=== PATIENT | male | born 2000 | race Caucasian/White ===

== ENCOUNTER 2022-02-28 20:13 | Emergency (ER) | payer BC ==
[2022-03-01 00:32] LABS: Absolute Lymphocytes (CBC) 2.6 K/uL (0.7-4.9); Hematocrit 38.8 % (39.6-49.0); Lymphocytes % 23.4 % (15.3-44.8); MCV 78.8 fL (80-100); MPV 7.2 fL (7.6-11.3); RBC Red Blood Cell Count 4.93 M/uL (4.33-5.43)
[2022-03-01 00:33] LABS: Protime INR 1.22
[2022-03-01 00:46] LABS: Albumin 3.7 g/dL (3.4-5.0); Bilirubin Direct 0.1 mg/dL (0-0.2); Bilirubin Total 0.5 mg/dL (0.2-1.0); Magnesium 2.1 mg/dL (1.8-2.4); Potassium 4.2 mmol/L (3.5-5.1); Protein, Total 7.6 g/dL (6.4-8.2); Troponin High Sensitivity 4.6 pg/mL (<58.9)
--- NOTE | 2022-03-01 01:16 | EDPHYS ---
Physician Documentation [facility] Name: Jeffrey Sevilla Age: 21 yrs Sex: Male : 2000 Arrival Date: 02/28/2022 Time: 20:18 Bed 8 Private MD: ED Physician Jack Jones HPI: 02/28 22:35 This 21 yrs old Male presents to ER via Ambulatory with complaints of Leg Probelm. cp 22:35 The patient presents with swelling, of lower legs and feet. cp 22:35 The complaints affect the left lower leg and left foot and right lower leg and right cp foot. Context: resulted from an unknown cause, the patient can fully bear weight, the patient is able to ambulate, without difficulty, Problem is a result from a previous injury: No. Onset: The symptoms/episode began/occurred 3 day(s) ago. Associated signs and symptoms: The patient has no apparent associated signs or symptoms, Pertinent negatives calf tenderness, fever, numbness, warmth, weakness, chest pain, shortness of breath. Treatment prior to arrival includes: no previous treatment. Historical: - Allergies: 20:45 NKDA; bh1 - Home Meds: 20:45 None [Active]; bh1 - PMHx: 20:45 None; bh1 - PSHx: 20:45 None; bh1 - Immunization history:: Adult Immunizations up to date. - Social history:: Smoking status: Reported history of juuling and/or vaping. ROS: 22:40 Constitutional: Negative for body aches, chills, fever, poor PO intake. cp 22:40 Eyes: Negative for injury, pain, redness, and discharge. cp 22:40 Neck: Negative for pain with movement, pain at rest, stiffness. 22:40 Cardiovascular: Positive for edema, Negative for chest pain, palpitations. 22:40 Respiratory: Negative for cough, shortness of breath, wheezing. 22:40 Abdomen/GI: Negative for abdominal pain, nausea, vomiting, and diarrhea, constipation, black/tarry stool, rectal bleeding. 22:40 Back: Negative for pain at rest, pain with movement. 22:40 Skin: Negative for cellulitis, rash. 22:40 Neuro: Negative for altered mental status, dizziness, headache, numbness, syncope, weakness. 22:40 All other systems are negative. Exam: 22:45 Constitutional: The patient appears in no acute distress, alert, awake, cp non-diaphoretic, non-toxic, well developed, well nourished, obese. 22:45 Head/Face: Normocephalic, atraumatic. cp 22:45 Eyes: Periorbital structures: appear normal, Conjunctiva: normal, no exudate, no injection, Sclera: no appreciated abnormality, Lids and lashes: appear normal, bilaterally. 22:45 ENT: External ear(s): are unremarkable, Nose: is normal, Mouth: Lips: moist, Oral mucosa: pink and intact, moist, Posterior pharynx: Airway: no evidence of obstruction, patent. 22:45 Neck: ROM/movement: is normal, is supple, without pain, no range of motions limitations. 22:45 Chest/axilla: Inspection: normal, Palpation: is normal, no crepitus, no tenderness. 22:45 Cardiovascular: Rate: normal, Rhythm: regular, Edema: pedal edema, that is very mild, ankle edema, that is very mild, JVD: is not appreciated. 22:45 Respiratory: the patient does not display signs of respiratory distress, Respirations: normal, no use of accessory muscles, no retractions, labored breathing, is not present, Breath sounds: are clear throughout, no decreased breath sounds, no stridor, no wheezing. 22:45 Abdomen/GI: Exam negative for discomfort, distension, guarding, Inspection: obese 22:45 Back: pain, is absent, ROM is normal. 22:45 Neuro: Orientation: to person, place \T\ time. Mentation: is normal, Motor: moves all fours, strength is normal, Sensation: is normal, Gait: is steady, at a normal pace, without difficulty. 23:55 ECG was reviewed by the Attending Physician. cp Vital Signs: 20:43 BP 101 / 54; Pulse 81; Resp 20; Temp 98.2(TE); Pulse Ox 100% ; Weight 181.44 kg; Height bh1 5 ft. 11 in. (180.34 cm); Pain 0/10; 03/01 00:17 BP 162 / 91; Pulse 86; Resp 18; Pulse Ox 100% ; kd3 02/28 20:43 Body Mass Index 55.79 (181.44 kg, 180.34 cm) bh1 MDM: 02/28 22:53 Patient medically screened. cp 23:00 Differential diagnosis: dependent edema, DVT, cellulitis, lymphedema, kidney failure, cp CHF, obesity. 03/01 01:15 Data reviewed: vital signs, nurses notes, lab test result(s), EKG, radiologic studies, cp plain films, ultrasound. 01:15 Test interpretation: by ED physician or midlevel provider: plain radiologic studies. cp Counseling: I had a detailed discussion with the patient and/or guardian regarding: the historical points, exam findings, and any diagnostic results supporting the discharge/admit diagnosis, lab results, radiology results, the need for outpatient follow up, a family practitioner, to return to the emergency department if symptoms worsen or persist or if there are any questions or concerns that arise at home. ED course: VSS. Labs, EKG and chest xray reviewed. Will discharge to home for continued monitoring. Recommend elevate, compression stockings. 02/28 22:34 Order name: Basic Metabolic Panel; Complete Time: 00:48 02/28 22:34 Order name: CBC with Diff; Complete Time: 00:41 02/28 22:34 Order name: LFT's; Complete Time: 00:48 cp 03/01 00:48 Interpretation: Normal except: AST 13; GLOB 3.9; A/G 0.9. 02/28 22:34 Order name: Magnesium; Complete Time: 00:48 cp 02/28 22:34 Order name: NT PRO-BNP; Complete Time: 00:48 cp 02/28 22:34 Order name: PT-INR; Complete Time: 00:41 03/01 00:41 Interpretation: Reviewed. 02/28 22:34 Order name: Troponin HS; Complete Time: 00:48 02/28 22:34 Order name: XRAY Chest (1 view) 02/28 22:34 Order name: EKG; Complete Time: 22:35 02/28 22: Order name: Cardiac monitoring; Complete Time: 00:16 cp 02/28 22:34 Order name: EKG - Nurse/Tech; Complete Time: 00:13 02/28 22:34 Order name: IV Saline Lock; Complete Time: 00:16 cp 02/28 22:34 Order name: Labs collected and sent; Complete Time: 00:16 02/28 22:34 Order name: US Extremity Venous W Compression Abdon cp 02/28 22:34 Order name: O2 Per Protocol; Complete Time: 00:16 cp 02/28 22:34 Order name: O2 Sat Monitoring; Complete Time: 00:16 cp EC/25 23:55 Rate is 87 beats/min. Rhythm is regular. AR interval is normal. QRS interval is normal. cp QT interval is normal. T waves are Inverted in lead aVR. Interpreted by me. Reviewed by me. Administered Medications: No medications were administered Disposition: 03/01 02:49 Co-signature as Attending Physician, Jack Jones MD I agree with the assessment and kdr plan of care. Disposition Summary: 03/01/22 01:15 Discharge Ordered Location: Home cp Problem: new cp Symptoms: are unchanged cp Condition: Stable cp Diagnosis - Edema, unspecified cp Followup: cp - With: Private Physician - When: 2 - 3 days - Reason: Recheck today's complaints Discharge Instructions: - Discharge Summary Sheet cp - Peripheral Edema cp - How to Use Compression Stockings cp - How to Take Your Blood Pressure cp Forms: - Medication Reconciliation Form cp - Thank You Letter cp - Antibiotic Education cp - Prescription Opioid Use cp Signatures: Dispatcher [employer] Jack Moreno MD MD kdr Marvin Hearn PA PA cp Hicks, Barbara, RN RN [facility]
--- NOTE | 2022-03-01 01:16 | ER ---
Nurse's Notes [facility] Name: Jeffrey Sevilla Age: 21 yrs Sex: Male : 2000 Arrival Date: 02/28/2022 Time: 20:18 Bed 8 Private MD: Diagnosis: Edema, unspecified Presentation: 02/28 20:43 Chief complaint: Patient states: FEET AND LEG SWELLING FOR 3 DAYS. Coronavirus screen: [facility] Vaccine status: Patient reports being unvaccinated. At this time, the client does not indicate any symptoms associated with coronavirus-19. Ebola Screen: Patient negative for fever greater than or equal to 101.5 degrees Fahrenheit, and additional compatible Ebola Virus Disease symptoms. Initial Sepsis Screen: Does the patient meet any 2 criteria? No. Patient's initial sepsis screen is negative. Does the patient have a suspected source of infection? No. Patient's initial sepsis screen is negative. Risk Assessment: Do you want to hurt yourself or someone else? Patient reports no desire to harm self or others. Onset of symptoms was February 28, 2022. 20:43 Method Of Arrival: Ambulatory [facility] 20:43 Acuity: NNEKA 4 [facility] Triage Assessment: 20:45 General: Appears in no apparent distress. Behavior is calm, cooperative, appropriate [facility] for age. Pain: Denies pain. Historical: - Allergies: 20:45 NKDA; [facility] - Home Meds: 20:45 None [Active]; 1 - PMHx: 20:45 None; [facility] - PSHx: 20:45 None; [facility] - Immunization history:: Adult Immunizations up to date. - Social history:: Smoking status: Reported history of juuling and/or vaping. Screenin/26 00:18 Abuse screen: Denies threats or abuse. Denies injuries from another. Nutritional kd3 screening: No deficits noted. Tuberculosis screening: No symptoms or risk factors identified. Fall Risk IV access (20 points). Assessment: 00:17 General: Appears in no apparent distress. Behavior is calm, cooperative. Neuro: Level kd3 of Consciousness is awake, alert, obeys commands, Oriented to person, place, time, situation. Cardiovascular: Patient's skin is warm and dry. Respiratory: Airway is patent Trachea midline Respiratory effort is even, unlabored. Vital Signs: 02/28 20:43 BP 101 / 54; Pulse 81; Resp 20; Temp 98.2(TE); Pulse Ox 100% ; Weight 181.44 kg; Height 1 5 ft. 11 in. (180.34 cm); Pain 0/10; 03/01 00:17 BP 162 / 91; Pulse 86; Resp 18; Pulse Ox 100% ; kd3 02/28 20:43 Body Mass Index 55.79 (181.44 kg, 180.34 cm) [facility] ED Course: 02/28 20:18 Patient arrived in ED. ja2 20:45 Triage completed. bh1 20:45 Arm band placed on right wrist. bh1 20:55 Marvin Hearn PA is PHCP. cp 20:55 Jack Jones MD is Attending Physician. cp 22:50 XRAY Chest (1 view) In Process Unspecified. EDMS 23:43 Ilya Pop RN is Primary Nurse. as6 23:48 US Extremity Venous W Compression Abdon In Process Unspecified. EDID 03/01 00:00 Inserted saline lock: 20 gauge in right antecubital area, using aseptic technique. as6 Blood collected. 00:16 PT-INR Sent. kd3 00:16 Troponin HS Sent. kd3 00:17 NT PRO-BNP Sent. kd3 00:17 Magnesium Sent. kd3 00:17 LFT's Sent. kd3 00:17 CBC with Diff Sent. kd3 00:17 Basic Metabolic Panel Sent. kd3 00:18 Patient has correct armband on for positive identification. kd3 01:28 No provider procedures requiring assistance completed. IV discontinued, intact, aa9 bleeding controlled, No redness/swelling at site. Pressure dressing applied. Administered Medications: No medications were administered Medication: 00:18 VIS not applicable for this client. kd3 Outcome: 01:15 Discharge ordered by MD. cp 01:28 Discharged to home ambulatory. aa9 01:28 Condition: stable 01:28 Discharge instructions given to patient, significant other, Instructed on discharge instructions, follow up and referral plans. Demonstrated understanding of instructions, follow-up care. 01:29 Patient left the ED. aa9 Signatures: Dispatcher [employer] EDID Marvin Hearn PA PA cp Soha Santiago ja2 Ilya Pop RN RN as6 Katy Alexandre RN RN kd3 Chelle Enamorado, RN RN aa9 Kerry Small, RN RN bh1
[2022-03-01 02:07] VITALS: TEMP 98.2; O2SAT 100
[2022-03-01 02:09] VITALS: BP 162/91
--- NOTE | 2022-03-01 11:11 | RAD REPORT ---
EXAM DESCRIPTION: XR Chest, 1 View CLINICAL HISTORY: The patient is 21 years old and is Male; edema TECHNIQUE: Frontal view of the chest. COMPARISON: No relevant prior studies available. FINDINGS: Lungs: Mildly prominent interstitial markings. No consolidation. Pleural space: Unremarkable. No pneumothorax. Heart: Unremarkable. Mediastinum: Unremarkable. Bones/joints: Unremarkable. IMPRESSION: Mildly prominent interstitial markings. No consolidation. Electronically signed by: Sagar Aquino MD 03/01/2022 4:32 AM CDT Due to temporary technical issues with the PACS/Fluency reporting system, reports are being signed by the in house radiologists without review as a courtesy to insure prompt reporting. The interpreting radiologist is fully responsible for the content of the report.
--- NOTE | 2022-03-01 11:32 | RAD REPORT ---
EXAM DESCRIPTION: US Duplex Bilateral Lower Extremities Veins CLINICAL HISTORY: The patient is 21 years old and is Male; SWELLING TECHNIQUE: Real-time duplex ultrasound scan of the bilateral lower extremity veins integrating B-mod e two-dimensional vascular structure, Doppler spectral analysis, color flow Doppler imaging and compr ession. COMPARISON: No relevant prior studies available. FINDINGS: Right deep veins: Unremarkable. No DVT in the visualized common femoral, femoral, or p opliteal veins. The veins demonstrate normal color flow, are normally compressible where visualized , with normal phasic flow and/or augmentation response. Left deep veins: Unremarkable. No DVT in the visualized common femoral, femoral, or popliteal v eins. The veins demonstrate normal color flow, are normally compressible where visualized, with nor mal phasic flow and/or augmentation response. Soft tissues: No acute findings. IMPRESSION: No evidence of DVT in the bilateral lower extremity veins. Electronically signed by: Sagar Aquino MD 03/01/2022 12:22 AM CDT Due to temporary technical issues with the PACS/Fluency reporting system, reports are being signed by the in house radiologists without review as a courtesy to insure prompt reporting. The interpreting radiologist is fully responsible for the content of the report.
--- NOTE | 2022-03-01 12:36 | EKG ---
Test Date: 2022-02-28 Test Time: 23:47:04 Survey Research Manager: SOFYA MEASUREMENT RESULTS: Intervals: Rate: 87 UT: 148 QRSD: 86 QT: 358 QTc: 430 [place]: P: 34 UT: 148 QRS: 48 T: 17 INTERPRETIVE STATEMENTS: Normal sinus rhythm Normal ECG No previous ECG available for comparison Electronically Signed On 03-01-22 12:35:59 CDT by Mingo Ojeda
== END 2022-03-01 01:29 | disposition home or self-care (01) ==
LOC: ER 20:13
DX: R60.9 Edema, unspecified (principal)
CPT/HCPCS: 36415; 71045; 80048; 80076; 83735; 83880; 84484; 85025; 85610; 93005; 93970; 99283

== ENCOUNTER 2023-01-18 06:15 | Emergency (ER) | payer BC, SELFPAY ==
[2023-01-18 07:36] LABS: Absolute Lymphocytes (CBC) 2.1 K/uL (0.7-4.9); Hematocrit 37.8 % (39.6-49.0); Lymphocytes % 25.7 % (15.3-44.8); MCV 78.9 fL (80-100); MPV 7.1 fL (7.6-11.3); RBC Red Blood Cell Count 4.79 M/uL (4.33-5.43)
[2023-01-18 07:49] LABS: Albumin 3.5 g/dL (3.4-5.0); Bilirubin Total 0.5 mg/dL (0.2-1.0); Protein, Total 7.4 g/dL (6.4-8.2); Troponin High Sensitivity 5.8 pg/mL (<58.9)
--- NOTE | 2023-01-18 07:53 | RAD REPORT ---
[facility] DES[facility] 7:45 am CLINICAL HISTORY: left leg pain COMPARISON: None FINDINGS: Left common femoral, superficial femoral, greater saphenous, popliteal and posterior tibi al veins are compressible and demonstrate augmentation. Doppler demonstrates good flow. Grayscale, color and spectral analysis performed on all vessels IMPRESSION: No evidence of deep venous thrombosis involving the left lower extremity.
--- NOTE | 2023-01-18 08:17 | EDPHYS ---
Physician Documentation [facility] Name: Jeffrey Sevilla Age: 22 yrs Sex: Male : 2000 Arrival Date: 01/18/2023 Time: 06:15 Bed 14 Private MD: ED Physician Reagan Blankenship HPI: 01/18 06:46 This 22 yrs old Male presents to ER via Ambulatory with complaints of INFECTION ON LEFT rt LEG. 06:46 Patient presents to the ED with pain, swelling to the left leg for about 2 days. He rt reports that it is red. He is concerned for infection. He states over the past several weeks, has had progressively worsening bilateral lower extremity swelling. Of note, the patient's father has been diagnosed with an unprovoked DVT and PE recently and was started on blood thinners. The patient denies other acute complaints including fever, chills, chest pain, shortness of breath. Symptoms are moderate severity, aching in nature, nonradiating, no other aggravating or alleviating factors.. Historical: - Allergies: 06:34 NKDA; ha1 - PMHx: 06:34 None; ha1 - Immunization history:: Adult Immunizations up to date. - Social history:: Smoking status: Patient denies any tobacco usage or history of. - Family history:: not pertinent. ROS: 06:46 Constitutional: Negative for fever, chills, and weight loss, Respiratory: Negative for rt shortness of breath, cough, wheezing, and pleuritic chest pain, Abdomen/GI: Negative for abdominal pain, nausea, vomiting, diarrhea, and constipation, Neuro: Negative for headache, weakness, numbness, tingling, and seizure, Psych: Negative for depression, anxiety, suicide ideation, homicidal ideation, and hallucinations. 06:46 Cardiovascular: Positive for edema, Negative for chest pain. 06:46 MS/extremity: Positive for erythema, swelling, warmth. Exam: 06:46 Constitutional: This is a well developed, well nourished patient who is awake, alert, rt and in no acute distress. Head/Face: Normocephalic, atraumatic. Chest/axilla: Normal chest wall appearance and motion. Nontender with no deformity. No lesions are appreciated. Cardiovascular: Regular rate and rhythm with a normal S1 and S2. No gallops, murmurs, or rubs. Normal PMI, no JVD. No pulse deficits. Respiratory: Lungs have equal breath sounds bilaterally, clear to auscultation and percussion. No rales, rhonchi or wheezes noted. No increased work of breathing, no retractions or nasal flaring. Abdomen/GI: Soft, non-tender, with normal bowel sounds. No distension or tympany. No guarding or rebound. No evidence of tenderness throughout. Neuro: Awake and alert, GCS 15, oriented to person, place, time, and situation. Cranial nerves II-XII grossly intact. Motor strength 5/5 in all extremities. Sensory grossly intact. Cerebellar exam normal. Normal gait. Psych: Awake, alert, with orientation to person, place and time. Behavior, mood, and affect are within normal limits. 06:46 Musculoskeletal/extremity: 2+ bilateral lower extremity edema, symmetric, there is erythema with warmth to the left anterior garcia, pulses, motor, sensation intact, no tenderness to the popliteal region.. Vital Signs: 06:31 BP 130 / 76; Pulse 95; Resp 19 S; Temp 98.7; Pulse Ox 99% on R/A; Weight 181.44 kg; ha1 Height 5 ft. 11 in. ; Pain 8/10; 07:00 BP 124 / 68; Pulse 93; Resp 16; Pulse Ox 99% on R/A; db 08:00 BP 144 / 81; Pulse 86; Resp 18; Pulse Ox 98% on R/A; db 06:31 Body Mass Index 55.79 (181.44 kg, 180.34 cm) ha1 06:31 Pain Scale: Adult ha1 MDM: 06:41 Patient medically screened. rt 07:11 Data reviewed: vital signs, nurses notes. ED course: Patient with left anterior leg bs3 redness warmth tender to touch consistent with cellulitis will treat with antibiotics no palpable abscess consistent with cellulitis and not abscess. 07:14 ED course: ecg Normal sinus rhythm [address] elevation or depression QTc 428 as bs3 interpreted by myself. 08:15 ED course: Ultrasound negative Labs otherwise normal except for anemia advised bs3 outpatient follow-up advised weight loss return precautions given. 01/18 06:40 Order name: CBC with Diff; Complete Time: 08:15 rt 01/18 06:40 Order name: CMP; Complete Time: 08:15 rt 01/18 06:40 Order name: BNP; Complete Time: 08:15 rt 01/18 06:40 Order name: Troponin High Sensitivity; Complete Time: 08:15 rt 01/18 06:40 Order name: Extremity Venous Uni Ltd US; Complete Time: 08:15 rt 01/18 06:40 Order name: EKG; Complete Time: 06:58 rt 01/18 06:40 Order name: EKG - Nurse/Tech; Complete Time: 06:58 rt Administered Medications: No medications were administered Disposition Summary: 01/18/23 08:16 Discharge Ordered Location: Home bs3 Condition: Stable bs3 Problem: new bs3 Symptoms: are unchanged bs3 Diagnosis - Cellulitis of left lower limb bs3 Followup: bs3 - With: Private Physician - When: 1 week - Reason: Re-evaluation by your physician Discharge Instructions: - Discharge Summary Sheet bs3 - Cellulitis, Adult bs3 Forms: - Medication Reconciliation Form bs3 - Thank You Letter bs3 - Antibiotic Education bs3 - Prescription Opioid Use bs3 Prescriptions: - Cephalexin 500 mg Oral Capsule - take 1 capsule by ORAL route every 6 hours for 10 days; 40 capsule; Refills: 0, bs3 Product Selection Permitted Signatures: Dispatcher [employer] Dee Black RN RN ha1 Reagan Blankenship MD MD bs3 Viet Salinas MD MD rt
--- NOTE | 2023-01-18 08:17 | ER ---
Nurse's Notes [facility] Name: Jeffrey Sevilla Age: 22 yrs Sex: Male : 2000 Arrival Date: 01/18/2023 Time: 06:15 Bed 14 Private MD: Diagnosis: Cellulitis of left lower limb Presentation: 01/18 06:31 Chief complaint: Patient states: I have a swelling on my left leg since Monday. It ha1 feels painful when I stand and put pressure to my foot. Coronavirus screen: Vaccine status: Patient reports being unvaccinated. Ebola Screen: No symptoms or risks identified at this time. Initial Sepsis Screen: Does the patient meet any 2 criteria? No. Patient's initial sepsis screen is negative. Does the patient have a suspected source of infection? No. Patient's initial sepsis screen is negative. Risk Assessment: Do you want to hurt yourself or someone else? Patient reports no desire to harm self or others. Onset of symptoms was January 16, 2023. 06:31 Method Of Arrival: Ambulatory 1 06:31 Acuity: NNEKA 3 ha1 Triage Assessment: 06:34 General: Appears comfortable, Behavior is calm, cooperative. Pain: Complains of pain in ha1 left leg Pain does not radiate. Pain currently is 8 out of 10 on a pain scale. Quality of pain is described as throbbing. Neuro: Level of Consciousness is awake, alert, obeys commands, Oriented to person, place, time, situation. Cardiovascular: Patient's skin is warm and dry. Respiratory: Airway is patent Respiratory effort is even, unlabored, Respiratory pattern is regular, symmetrical. GI: No signs and/or symptoms were reported involving the gastrointestinal system. Abdomen is non-distended, obese. : No signs and/or symptoms were reported regarding the genitourinary system. Derm: redness on the left leg. Musculoskeletal: Circulation, motion, and sensation intact. Range of motion: intact in all extremities. Historical: - Allergies: 06:34 NKDA; ha1 - PMHx: 06:34 None; ha1 - Immunization history:: Adult Immunizations up to date. - Social history:: Smoking status: Patient denies any tobacco usage or history of. - Family history:: not pertinent. Screenin:36 [facility] ED Fall Risk Assessment (Adult) History of falling in the last 3 months, ha1 including since admission No falls in past 3 months (0 pts) Confusion or Disorientation No (0 pts) Intoxicated or Sedated No (0 pts) Impaired Gait No (0 pts) Mobility Assist Device Used No (0 pt) Altered Elimination No (0 pt) Score/Fall Risk Level 0 - 2 = Low Risk Oriented to surroundings, Maintained a safe environment, Educated pt \T\ family on fall prevention, incl call for assistance when getting out of bed. Abuse screen: Denies threats or abuse. Denies injuries from another. Nutritional screening: No deficits noted. Tuberculosis screening: No symptoms or risk factors identified. Assessment: 07:19 Reassessment: Patient appears in no apparent distress at this time. Patient and/or db family updated on plan of care and expected duration. Pain level reassessed. Patient is alert, oriented x 3, equal unlabored respirations, skin warm/dry/pink. General: Appears in no apparent distress. comfortable, Behavior is calm, cooperative. Neuro: Level of Consciousness is awake, alert, obeys commands, Oriented to person, place, time, situation. Respiratory: Airway is patent Respiratory effort is even, unlabored, Respiratory pattern is regular, symmetrical. 07:20 Reassessment: Ultrasound at bedside. db 08:21 Reassessment: Patient appears in no apparent distress at this time. Patient and/or db family updated on plan of care and expected duration. Pain level reassessed. Patient is alert, oriented x 3, equal unlabored respirations, skin warm/dry/pink. Patient states feeling better. Patient states symptoms have improved. Vital Signs: 06:31 BP 130 / 76; Pulse 95; Resp 19 S; Temp 98.7; Pulse Ox 99% on R/A; Weight 181.44 kg; ha1 Height 5 ft. 11 in. ; Pain 8/10; 07:00 BP 124 / 68; Pulse 93; Resp 16; Pulse Ox 99% on R/A; db 08:00 BP 144 / 81; Pulse 86; Resp 18; Pulse Ox 98% on R/A; db 06:31 Body Mass Index 55.79 (181.44 kg, 180.34 cm) [facility] 06:31 Pain Scale: Adult [facility] ED Course: 06:20 Patient arrived in ED. [id number] 06:24 Patient has correct armband on for positive identification. Bed in low position. Call ha1 light in reach. Side rails up X 1. 06:30 Dee Trammell, RN is Primary Nurse. ha1 06:34 Triage completed. ha1 06:34 Arm band placed on right wrist. ha1 06:35 Viet Salinas MD is Attending Physician. rt 07:10 Attending Physician role handed off by Viet Salinas MD bs3 07:10 Reagan Blankenship MD is Attending Physician. bs3 07:16 Inserted saline lock: 20 gauge in right antecubital area, using aseptic technique. db Blood collected. 07:47 Extremity Venous Uni Ltd US In Process Unspecified. EDMS 08:21 Client placed on continuous cardiac and pulse oximetry monitoring. NIBP monitoring db applied. 08:21 No provider procedures requiring assistance completed. IV discontinued, intact, db bleeding controlled, No redness/swelling at site. Administered Medications: No medications were administered Medication: 08:21 VIS not applicable for this client. db Outcome: 08:16 Discharge ordered by . bs3 08:21 Discharged to home ambulatory. db 08:21 Condition: stable 08:21 Discharge instructions given to patient, Instructed on discharge instructions, follow up and referral plans. Prescriptions given X 1. 08:27 Patient left the ED. db Signatures: Dispatcher [employer] EDME Terra Hammond [id number] Dee Trammell RN RN ha1 Reagan Blankenship MD MD bs3 Latrice Montemayor RN RN db Viet Salinas MD MD rt
--- NOTE | 2023-01-18 08:18 | EKG ---
Test Date: 2023-01-18 Test Time: 06:54:28 Rug Hooker: MELLY MEASUREMENT RESULTS: Intervals: Rate: 88 [place]: 164 QRSD: 86 QT: 354 QTc: 428 [place]: P: 35 [place]: 164 QRS: 49 T: 27 INTERPRETIVE STATEMENTS: Normal sinus rhythm Normal ECG Compared to ECG 02/28/2022 23:47:04 No significant changes Electronically Signed On 01-18-23 08:17:16 CDT by Julio Cesar Lee
[2023-01-18 08:41] VITALS: TEMP 98.7
[2023-01-18 08:53] VITALS: BP 144/81; O2SAT 98
== END 2023-01-18 08:27 | disposition home or self-care (01) ==
LOC: ER 06:15
DX: L03.116 Cellulitis of left lower limb (principal)
CPT/HCPCS: 36415; 80053; 83880; 84484; 85025; 93005; 93971; 99284

== ENCOUNTER 2023-01-25 12:39 | Emergency (ER) | payer SELFPAY ==
--- NOTE | 2023-01-25 15:41 | RAD REPORT ---
EXAM DESCRIPTION: US - Extremity Venous Uni Ltd - 01/25/2023 1:59 pm CLINICAL HISTORY: Pain, swelling COMPARISON: None. TECHNIQUE: Real-time sonographic evaluation of the left lower extremity deep venous system was perfo rmed. FINDINGS: Normal compressibility, flow augmentation, phasic flow and spontaneous flow is identified in the left lower extremity deep venous system. No intraluminal filling defects seen. Left lower leg subcutaneous soft tissue swelling. IMPRESSION: No evidence of DVT in the left lower extremity. Left lower leg subcutaneous soft tissue swelling.
--- NOTE | 2023-01-25 16:24 | ER ---
Nurse's Notes [facility] Name: Jeffrey Sevilla Age: 22 yrs Sex: Male : 2000 Arrival Date: 01/25/2023 Time: 12:39 Bed DX3 Private MD: Diagnosis: Cellulitis of left lower limb;Localized edema Presentation: 01/25 13:57 Chief complaint: Patient states: L leg swelling x 1 week. Coronavirus screen: Vaccine ph status: Patient reports being unvaccinated. Ebola Screen: No symptoms or risks identified at this time. Initial Sepsis Screen: Does the patient meet any 2 criteria? No. Patient's initial sepsis screen is negative. Does the patient have a suspected source of infection? No. Patient's initial sepsis screen is negative. Risk Assessment: Do you want to hurt yourself or someone else? Patient reports no desire to harm self or others. Onset of symptoms was January 25, 2023. 13:57 Method Of Arrival: Ambulatory ph 13:57 Acuity: NNEKA 4 ph Historical: - Allergies: 13:58 NKDA; ph - PMHx: 13:58 None; ph Screenin:28 [facility] ED Fall Risk Assessment (Adult) History of falling in the last 3 months, ss including since admission No falls in past 3 months (0 pts). Abuse screen: Denies threats or abuse. Denies injuries from another. Nutritional screening: No deficits noted. Tuberculosis screening: Never had TB. Assessment: 16:28 General: Appears in no apparent distress. comfortable, Behavior is calm, cooperative. ss Neuro: Level of Consciousness is awake, alert. Respiratory: Respiratory effort is even, unlabored. Vital Signs: 13:57 BP 131 / 64; Pulse 93; Resp 18; Temp 97.9; Pulse Ox 100% on R/A; Weight 181.44 kg; ph Height 5 ft. 11 in. ; 13:57 Body Mass Index 55.79 (181.44 kg, 180.34 cm) ph ED Course: 12:42 Patient arrived in ED. mr 12:50 Bettie Gale FNP-C is PHCP. snw 12:50 Viet Salinas MD is Attending Physician. snw 13:58 Triage completed. ph 13:58 Arm band placed on Patient placed in an exam room. US ordered. ph 13:59 Kina Ocampo, RN is Primary Nurse. ph 14:01 Extremity Venous Unilateral Ltd In Process Unspecified. EDMS 16:28 Patient has correct armband on for positive identification. ss 16:28 No provider procedures requiring assistance completed. Patient did not have IV access ss during this emergency room visit. Administered Medications: 16:22 Drug: Ciprofloxacin PO 500 mg Route: PO; ss 16:29 Follow up: Response: Medication administered at discharge. ss Medication: 16:28 VIS not applicable for this client. ss Outcome: 16:23 Discharge ordered by MD. snw 16:28 Discharged to home ambulatory, with family. ss 16:28 Condition: good 16:28 Discharge instructions given to patient, Instructed on discharge instructions, follow up and referral plans. medication usage, Demonstrated understanding of instructions, follow-up care, medications, Prescriptions given X 1. 16:30 Patient left the ED. Signatures: Dispatcher [employer] EDWV Bettie Gale, COMMERCIAL PROPERTY ADMINISTRATOR-C COMMERCIAL PROPERTY ADMINISTRATOR-Sandrow Hilary Avila Smiley Linares, RN RN Kina Ocampo, RN RN ph
--- NOTE | 2023-01-25 16:24 | EDPHYS ---
Physician Documentation [facility] Name: Jeffrey Sevilla Age: 22 yrs Sex: Male : 2000 Arrival Date: 01/25/2023 Time: 12:39 Bed DX3 Private MD: ED Physician Viet Salinas HPI: 01/25 13:28 This 22 yrs old Male presents to ER via Unassigned with complaints of Leg Swelling. snw 13:28 The patient presents with pain, swelling. The complaints affect the left garcia and snw anterior aspect of left ankle. Onset: The symptoms/episode began/occurred acutely, recent dx of cellulitis with abx completion. Dad recently dx with unprovoked DVT, pt is also obese increasing his risk. The patient has experienced a previous episode, last week. The patient has been recently seen at the [facility] Emergency Department, a couple of weeks ago, for similar complaints was given a prescription for antibiotics. Historical: - Allergies: 13:58 NKDA; ph - PMHx: 13:58 None; ph ROS: 13:28 Constitutional: Negative for fever, chills, and weight loss, Eyes: Negative for injury, snw pain, redness, and discharge, ENT: Negative for injury, pain, and discharge, Neck: Negative for injury, pain, and swelling, Cardiovascular: Negative for chest pain, palpitations, and edema, Respiratory: Negative for shortness of breath, cough, wheezing, and pleuritic chest pain, Abdomen/GI: Negative for abdominal pain, nausea, vomiting, diarrhea, and constipation, Back: Negative for injury and pain, : Negative for injury, bleeding, discharge, and swelling, Skin: Negative for injury, rash, and discoloration, Neuro: Negative for headache, weakness, numbness, tingling, and seizure, Psych: Negative for depression, anxiety, suicide ideation, homicidal ideation, and hallucinations. 13:28 MS/extremity: Positive for swelling, tenderness, of the left leg. Exam: 13:26 Head/Face: Normocephalic, atraumatic. Eyes: Pupils equal round and reactive to light, snw extra-ocular motions intact. Lids and lashes normal. Conjunctiva and sclera are non-icteric and not injected. Cornea within normal limits. Periorbital areas with no swelling, redness, or edema. ENT: Nares patent. No nasal discharge, no septal abnormalities noted. Tympanic membranes are normal and external auditory canals are clear. Oropharynx with no redness, swelling, or masses, exudates, or evidence of obstruction, uvula midline. Mucous membranes moist. Cardiovascular: Regular rate and rhythm with a normal S1 and S2. No gallops, murmurs, or rubs. Normal PMI, no JVD. No pulse deficits. Respiratory: Lungs have equal breath sounds bilaterally, clear to auscultation and percussion. No rales, rhonchi or wheezes noted. No increased work of breathing, no retractions or nasal flaring. Abdomen/GI: Soft, non-tender, with normal bowel sounds. No distension or tympany. No guarding or rebound. No evidence of tenderness throughout. Back: No spinal tenderness. No costovertebral tenderness. Full range of motion. Skin: Warm, dry with normal turgor. Normal color with no rashes, no lesions, and no evidence of cellulitis. Neuro: Awake and alert, GCS 15, oriented to person, place, time, and situation. Cranial nerves II-XII grossly intact. Motor strength 5/5 in all extremities. Sensory grossly intact. Cerebellar exam normal. Normal gait. Psych: Awake, alert, with orientation to person, place and time. Behavior, mood, and affect are within normal limits. 13:26 Constitutional: The patient appears alert, awake, obese. 13:26 Musculoskeletal/extremity: Extremities: grossly normal except: noted in the left leg: swelling, tenderness, dx with Cellulitis last ED visit, took all antibiotics but leg continues with edema. Vital Signs: 13:57 BP 131 / 64; Pulse 93; Resp 18; Temp 97.9; Pulse Ox 100% on R/A; Weight 181.44 kg; ph Height 5 ft. 11 in. ; 13:57 Body Mass Index 55.79 (181.44 kg, 180.34 cm) ph MDM: 12:50 Patient medically screened. snw 16:00 Differential diagnosis: closed fracture, contusion, cellulitis, DVT. Data reviewed: snw vital signs, nurses notes, radiologic studies. 16:22 Counseling: I had a detailed discussion with the patient and/or guardian regarding: the snw historical points, exam findings, and any diagnostic results supporting the discharge/admit diagnosis, radiology results, the need for outpatient follow up, for definitive care, to return to the emergency department if symptoms worsen or persist or if there are any questions or concerns that arise at home. Special discussion: Based on the history and exam findings, there is no indication for further emergent testing or inpatient evaluation. I discussed with the patient/guardian the need to see the primary care provider for further evaluation of the symptoms. 01/25 13:23 Order name: US Extremity Venous Unilateral Ltd; Complete Time: 15:42 snw Administered Medications: 16:22 Drug: Ciprofloxacin PO 500 mg Route: PO; ss 16:29 Follow up: Response: Medication administered at discharge. ss Disposition: 21:24 Co-signature as Attending Physician, Viet Salinas MD I reviewed the patient's care rt provided by the Advanced Practice Provider and agree with the diagnosis and treatment plan. Disposition Summary: 01/25/23 16:23 Discharge Ordered Location: Home snw Condition: Stable snw Diagnosis - Cellulitis of left lower limb snw - Localized edema snw Followup: snw - With: Emergency Department - When: As needed - Reason: Worsening of condition Followup: snw - With: Private Physician - When: 1 week - Reason: Recheck today's complaints, Continuance of care, Re-evaluation by your physician Discharge Instructions: - Discharge Summary Sheet snw - Cellulitis, Adult snw - Edema snw Forms: - Work release form snw - Medication Reconciliation Form snw - Thank You Letter snw - Antibiotic Education snw - Prescription Opioid Use snw Prescriptions: - Cipro 500 mg Oral Tablet - take 1 tablet by ORAL route every 12 hours for 10 days; 20 tablet; Refills: 0, snw Product Selection Permitted Signatures: Dispatcher [employer] EDBettie Alcocer, GANG SUPERVISOR PIPE LINES-C GANG SUPERVISOR PIPE LINES-Csnw Smiley Linares RN RN Kina Abdullahi RN RN Viet Salinas MD MD rt
[2023-01-25] MEDS ORDERED: CIPROFLOXACIN HCL 500 MG TAB ONE (16:30)
[2023-01-25 16:56] VITALS: BP 131/64; TEMP 97.9; O2SAT 100
== END 2023-01-25 16:30 | disposition home or self-care (01) ==
LOC: ER 12:39
DX: L03.116 Cellulitis of left lower limb (principal); R60.0 Localized edema
CPT/HCPCS: 93971

== ENCOUNTER 2023-02-11 21:00 | Emergency (ER) | payer SELFPAY ==
[2023-02-11] MEDS ORDERED: HYDROCODONE/APAP 5/325 MG TAB ONE (21:56)
[2023-02-11] MEDS ORDERED: IBUPROFEN 400 MG TAB ONE (21:58)
--- NOTE | 2023-02-11 22:06 | ER ---
Nurse's Notes [facility] Name: Jeffrey Sevilla Age: 22 yrs Sex: Male : 2000 Arrival Date: 02/11/2023 Time: 21:00 Bed 5 Private MD: Diagnosis: Disorder of teeth and supporting structures, unspecified Presentation: 02/11 21:03 Chief complaint: Patient states: "I'm having pain to the right side of my lower jaw. It vc1 is causing pressure to my right ear too making it hurt. Coronavirus screen: Vaccine status: Patient reports being unvaccinated. Client denies travel out of the [place] in the last 14 days. At this time, the client does not indicate any symptoms associated with coronavirus-19. Ebola Screen: Patient negative for fever greater than or equal to 101.5 degrees Fahrenheit, and additional compatible Ebola Virus Disease symptoms Patient denies exposure to infectious person. Patient denies travel to an Ebola-affected area in the 21 days before illness onset. No symptoms or risks identified at this time. Risk Assessment: Do you want to hurt yourself or someone else? Patient reports no desire to harm self or others. Onset of symptoms is unknown. 21:03 Method Of Arrival: Ambulatory vc1 21:03 Acuity: NNEKA 4 vc1 21:11 Initial Sepsis Screen: Does the patient meet any 2 criteria? RR > 20 per min. HR > 90 vc1 bpm. Yes Does the patient have a suspected source of infection? Yes: Skin breakdown/wound Other: toothache. Care prior to arrival: Medication(s) given: BC Powder 1 hour ago. Triage Assessment: 21:05 General: Appears in no apparent distress. uncomfortable, obese, Behavior is restless. vc1 Pain: Complains of pain in right lower jaw Pain radiates to right ear Pain currently is 10 out of 10 on a pain scale. Quality of pain is described as throbbing, pulsating, Pain began 2-3 days ago. Is continuous, Alleviated by medications. EENT: Reports pain. Neuro: Level of Consciousness is awake, alert, obeys commands, Oriented to person, place, time, situation, Appropriate for age. Cardiovascular: No deficits noted. Respiratory: Airway is patent Respiratory effort is even, unlabored, Respiratory pattern is regular, symmetrical. GI: No deficits noted. No signs and/or symptoms were reported involving the gastrointestinal system. : No deficits noted. No signs and/or symptoms were reported regarding the genitourinary system. Derm: No deficits noted. No signs and/or symptoms reported regarding the dermatologic system. Musculoskeletal: No deficits noted. No signs and/or symptoms reported regarding the musculoskeletal system. Historical: - Allergies: 21:05 NKDA; vc1 - Home Meds: 21:05 None [Active]; vc1 - PMHx: 21:05 None; vc1 - PSHx: 21:05 None; vc1 - Immunization history:: Client reports having NOT received the Covid vaccine. - Social history:: Smoking status: Reported history of juuling and/or vaping. Screenin:06 [facility] ED Fall Risk Assessment (Adult) History of falling in the last 3 months, vc1 including since admission No falls in past 3 months (0 pts) Confusion or Disorientation No (0 pts) Intoxicated or Sedated No (0 pts) Impaired Gait No (0 pts) Mobility Assist Device Used No (0 pt) Altered Elimination No (0 pt) Score/Fall Risk Level 0 - 2 = Low Risk Oriented to surroundings, Maintained a safe environment, Educated pt \\T\\ family on fall prevention, incl call for assistance when getting out of bed. Abuse screen: Denies threats or abuse. Nutritional screening: No deficits noted. Tuberculosis screening: No symptoms or risk factors identified. Vital Signs: 21:03 Weight 181.44 kg; Height 5 ft. 11 in. ; Pain 10/10; vc1 21:07 BP 152 / 97; Pulse 95; Resp 24; Temp 98.2; Pulse Ox 100% ; vc1 22:19 BP 161 / 93; Pulse 89; Resp 20; Pulse Ox 99% on R/A; kl 21:03 Body Mass Index 55.79 (181.44 kg, 180.34 cm) vc1 21:03 Pain Scale: Adult 1 ED Course: 21:02 Patient arrived in ED. mr 21:04 Triage completed. vc1 21:05 Arm band placed on right wrist. vc1 21:06 Marvin Hearn PA is PHCP. cp 21:06 Jack Jones MD is Attending Physician. cp Administered Medications: 21:58 Drug: HYDROcodone-acetaminophen PO 5 mg-325 mg 1 tabs Route: PO; kl 22:19 Follow up: Response: No adverse reaction; Pain is decreased kl 21:58 Drug: Ibuprofen PO 800 mg Route: PO; kl 22:19 Follow up: Response: No adverse reaction; Pain is decreased kl 21:58 Drug: Clindamycin PO 600 mg Route: PO; kl 22:19 Follow up: Response: No adverse reaction Medication: 21:07 VIS not applicable for this client. vc1 Outcome: 22:06 Discharge ordered by . shara 22:20 Patient left the ED. kl Signatures: Leidy Barger, RN RN Hilary Michele mr Marvin Hearn PA PA cp Calcote, Vanessa, RN RN vc1
--- NOTE | 2023-02-11 22:06 | EDPHYS ---
Physician Documentation [facility] Name: Jeffrey Sevilla Age: 22 yrs Sex: Male : 2000 Arrival Date: 02/11/2023 Time: 21:00 Bed 5 Private MD: ED Physician Jack Jones HPI: 02/11 21:30 This 22 yrs old Male presents to ER via Ambulatory with complaints of Toothache, Ear cp Pain. 21:30 The patient presents with pain. The problem is located in the right lower jaw. Onset: cp The symptoms/episode began/occurred for weeks. Duration: The symptoms are continuous, pain worse over past several days. Associated signs and symptoms: Pertinent positives: right ear and jaw pain, Pertinent negatives: anorexia, chills, dysphagia, swelling. Severity of symptoms: in the emergency department the symptoms are unchanged, despite home interventions. Historical: - Allergies: 21:05 NKDA; vc1 - Home Meds: 21:05 None [Active]; vc1 - PMHx: 21:05 None; vc1 - PSHx: 21:05 None; vc1 - Immunization history:: Client reports having NOT received the Covid vaccine. - Social history:: Smoking status: Reported history of juuling and/or vaping. ROS: 21:35 Constitutional: Negative for body aches, chills, fever, poor PO intake. cp 21:35 Eyes: Negative for injury, pain, redness, and discharge. cp 21:35 ENT: Positive for dental pain, ear pain, Negative for drainage from ear(s), sore throat, difficulty swallowing, difficulty handling secretions. 21:35 Respiratory: Negative for cough, wheezing. 21:35 Abdomen/GI: Negative for abdominal pain, vomiting, diarrhea, constipation. 21:35 Neuro: Negative for altered mental status, weakness. 21:35 All other systems are negative. Exam: 21:45 Constitutional: This is a well developed, well nourished patient who is awake, alert, cp and in no acute distress. Head/Face: Normocephalic, atraumatic. 21:45 Eyes: Periorbital structures: appear normal, Conjunctiva: normal, no exudate, no cp injection, Sclera: no appreciated abnormality, Lids and lashes: appear normal, bilaterally. 21:45 ENT: External ear(s): are unremarkable, Ear canal(s): are normal, clear, TM's: bulging, is not appreciated, bilaterally, dullness, bilaterally, erythema, is not appreciated, bilaterally, Nose: is normal, Mouth: Lips: moist, Oral mucosa: pink and intact, moist, Posterior pharynx: is normal, airway is patent, no erythema, no exudate, Tonsils: are normal in appearance, swelling, is not appreciated, erythema, is not appreciated, Dental exam: abscess, is not appreciated, dental caries, that is mild, pain, that is severe, specifically in the lower right second bicuspid (#29) and lower right first molar (#30), Voice: is normal. 21:45 Neck: ROM/movement: is normal, is supple, without pain, no range of motions limitations, no meningismus, Lymph nodes: no appreciated lymphadenopathy. 21:45 Chest/axilla: Inspection: normal. 21:45 Cardiovascular: Rate: normal, Rhythm: regular. 21:45 Respiratory: the patient does not display signs of respiratory distress, Respirations: normal, no use of accessory muscles, no retractions, labored breathing, is not present, Breath sounds: are clear throughout, no decreased breath sounds, no stridor, no wheezing. 21:45 Abdomen/GI: Exam negative for discomfort, distension, guarding, Inspection: abdomen appears normal. Vital Signs: 21:03 Weight 181.44 kg; Height 5 ft. 11 in. ; Pain 10/10; vc1 21:07 BP 152 / 97; Pulse 95; Resp 24; Temp 98.2; Pulse Ox 100% ; vc1 22:19 BP 161 / 93; Pulse 89; Resp 20; Pulse Ox 99% on R/A; kl 21:03 Body Mass Index 55.79 (181.44 kg, 180.34 cm) vc1 21:03 Pain Scale: Adult vc1 MDM: 21:12 Patient medically screened. 21:30 Differential diagnosis: dental caries, dental abscess, pericoronitis. cp 22:05 Data reviewed: vital signs, nurses notes. cp 22:05 I considered the following discharge prescriptions or medication management in the emergency department Medications were administered in the Emergency Department. See MAR. Counseling: I had a detailed discussion with the patient and/or guardian regarding: the historical points, exam findings, and any diagnostic results supporting the discharge/admit diagnosis, to return to the emergency department if symptoms worsen or persist or if there are any questions or concerns that arise at home. Response to treatment: the patient's symptoms have markedly improved after treatment, and as a result, I will discharge patient. Administered Medications: 21:58 Drug: HYDROcodone-acetaminophen PO 5 mg-325 mg 1 tabs Route: PO; kl 22:19 Follow up: Response: No adverse reaction; Pain is decreased kl 21:58 Drug: Ibuprofen PO 800 mg Route: PO; kl 22:19 Follow up: Response: No adverse reaction; Pain is decreased kl 21:58 Drug: Clindamycin PO 600 mg Route: PO; kl 22:19 Follow up: Response: No adverse reaction kl Disposition Summary: 02/11/23 22:06 Discharge Ordered Location: Home cp Problem: an ongoing problem cp Symptoms: have improved cp Condition: Stable cp Diagnosis - Disorder of teeth and supporting structures, unspecified cp Followup: cp - With: Private Physician - When: 2 - 3 days - Reason: Recheck today's complaints Discharge Instructions: - Discharge Summary Sheet cp - Dental Pain cp Forms: - Medication Reconciliation Form cp - Thank You Letter cp - Antibiotic Education cp - Prescription Opioid Use cp - [email or web address] cp Prescriptions: - Clindamycin HCl 300 mg Oral Capsule - take 1 capsule by ORAL route every 6 hours for 10 days; 40 capsule; Refills: 0, cp Product Selection Permitted - Diclofenac Sodium 75 mg Oral Tablet Sustained Release - take 1 tablet by ORAL route 2 times per day; 30 tablet; Refills: 0, Product cp Selection Permitted Signatures: Leidy Barger RN RN Marvin Lozoya PA PA cp Calcote, Vanessa RN RN vc1
[2023-02-11 22:27] VITALS: TEMP 98.2
[2023-02-11 22:29] VITALS: BP 161/93; O2SAT 99
== END 2023-02-11 22:20 | disposition home or self-care (01) ==
LOC: ER 21:00
DX: K08.9 Disorder of teeth and supporting structures, unspecified (principal); F17.290 Nicotine dependence, other tobacco product, uncomplicated
CPT/HCPCS: 99282

== ENCOUNTER 2023-05-30 15:14 | Emergency (ER) | payer SELFPAY ==
[2023-05-30 16:41] LABS: Absolute Lymphocytes (CBC) 1.9 K/uL (0.7-4.9); Lymphocytes % 18.6 % (15.3-44.8); MCV 80.6 fL (80-100); MPV 7.1 fL (7.6-11.3); Platelets 255 thou/uL (152-406); RBC Red Blood Cell Count 4.71 M/uL (4.33-5.43)
[2023-05-30 16:43] LABS: Protime INR 1.2
--- NOTE | 2023-05-30 16:54 | RAD REPORT ---
EXAM DESCRIPTION: RADChest Single View05/30/2023 4:39 pm CLINICAL HISTORY: edema COMPARISON: Chest Single View dated 02/28/2022 TECHNIQUE: Portable AP view of the chest. FINDINGS: The lungs are clear. No pneumothorax or effusion. The cardiomediastinal contours are unre markable. IMPRESSION: No acute cardiopulmonary process.
[2023-05-30 16:59] LABS: Troponin High Sensitivity 5.8 pg/mL (<58.9)
[2023-05-30 17:02] LABS: Potassium 4.1 mEq/L (3.5-5.1)
--- NOTE | 2023-05-30 17:56 | ER ---
Nurse's Notes [facility] Name: Jeffrey Sevilla Age: 22 yrs Sex: Male : 2000 Arrival Date: 05/30/2023 Time: 15:14 Bed 5 Private MD: Diagnosis: Localized edema;Unspecified otitis externa, right ear Presentation: 05/30 15:43 Chief complaint: Patient states: right ear pain X1 week and bilateral leg swelling X6 cm10 months. Coronavirus screen: Vaccine status: Patient reports being unvaccinated. Client denies travel out of the [place] in the last 14 days. Ebola Screen: Patient denies travel to an Ebola-affected area in the 21 days before illness onset. No symptoms or risks identified at this time. Initial Sepsis Screen: Does the patient meet any 2 criteria? No. Patient's initial sepsis screen is negative. Does the patient have a suspected source of infection? No. Patient's initial sepsis screen is negative. Risk Assessment: Do you want to hurt yourself or someone else? Patient reports no desire to harm self or others. Onset of symptoms was May 30, 2023. 15:43 Method Of Arrival: Ambulatory cm10 15:43 Acuity: NNEKA 3 cm10 Historical: - Allergies: 15:44 NKDA; cm10 - Home Meds: 15:44 None [Active]; cm10 - PMHx: 15:44 None; cm10 - PSHx: 15:44 None; cm10 - Immunization history:: Adult Immunizations unknown. - Social history:: Smoking status: Patient denies any tobacco usage or history of. Screenin:12 [facility] ED Fall Risk Assessment (Adult) History of falling in the last 3 months, ld1 including since admission No falls in past 3 months (0 pts). Abuse screen: Denies threats or abuse. Denies injuries from another. Nutritional screening: No deficits noted. Tuberculosis screening: No symptoms or risk factors identified. Assessment: 17:12 General: Appears in no apparent distress. comfortable, Behavior is calm, cooperative, ld1 appropriate for age. Pain: Complains of pain in right ankle and right midcalf and left ankle and left midcalf Pain does not radiate. Pain currently is 7 out of 10 on a pain scale. Quality of pain is described as throbbing. Neuro: Level of Consciousness is awake, alert, obeys commands, Oriented to person, place, time, situation. Cardiovascular: Capillary refill < 3 seconds Patient's skin is warm and dry. Respiratory: Airway is patent Respiratory effort is even, unlabored. GI: Abdomen is flat, non-distended. : No signs and/or symptoms were reported regarding the genitourinary system. EENT: Reports pain in right ear. Derm: No signs and/or symptoms reported regarding the dermatologic system. Musculoskeletal: No signs and/or symptoms reported regarding the musculoskeletal system. Vital Signs: 15:43 BP 160 / 102; Pulse 101; Resp 18; Temp 98.8(TE); Pulse Ox 100% on R/A; Weight 181.44 cm10 kg; Height 5 ft. 1 in. ; Pain 7/10; 15:43 Body Mass Index 75.58 (181.44 kg, 154.94 cm) cm10 15:43 Pain Scale: Adult cm10 ED Course: 15:15 Patient arrived in ED. rg4 15:41 Terra Cortés FNP [facility] jh7 15:41 Marvin Haney MD is Attending Physician. [facility] 15:44 Triage completed. cm10 15:44 Arm band placed on Patient placed in waiting room. cm10 16:31 Basic Metabolic Panel Sent. mb9 16:31 CBC with Diff Sent. mb9 16:31 NT PRO-BNP Sent. mb9 16:31 PT-INR Sent. mb9 16:31 Troponin HS Sent. mb9 16:31 EKG done, by ED staff, reviewed by Terra PAINTING. Inserted saline lock: 22 gauge mb9 in left forearm, using aseptic technique. 16:41 XRAY Chest (1 view) In Process Unspecified. EDMS 16:51 Shara Barraza, RN is Primary Nurse. ld1 17:08 US Extremity Venous W Compression Abdon In Process Unspecified. EDMS 17:12 Patient has correct armband on for positive identification. Placed in gown. Bed in low ld1 position. Call light in reach. Side rails up X2. quality assurance monitor chassis on. Pulse ox on. NIBP on. Door closed. Noise minimized. Warm blanket given. 17:12 No provider procedures requiring assistance completed. ld1 18:19 IV discontinued, intact, bleeding controlled, No redness/swelling at site. aa5 Administered Medications: No medications were administered Medication: 17:12 VIS not applicable for this client. ld1 Outcome: 17:56 Discharge ordered by . shavonne 18:19 Discharged to home ambulatory, aa5 18:19 Condition: stable 18:19 Discharge instructions given to patient, family, Instructed on discharge instructions, follow up and referral plans. Demonstrated understanding of instructions, follow-up care, medications, Prescriptions given X 1, 18:19 Patient left the ED. aa5 Signatures: Dispatcher [employer] EDMS Belia Henson, RN RN aa5 Radha Dumont4 Shara Barraza RN RN ld1 Terra Cortés, BUTADIENE CONVERTER HELPER BUTADIENE CONVERTER HELPER [email or web address] Hilary Ortiz, RN RN mb9 Ashia Ramirez RN RN cm10
--- NOTE | 2023-05-30 17:56 | EDPHYS ---
Physician Documentation [facility] Name: Jeffrey Sevilla Age: 22 yrs Sex: Male : 2000 Arrival Date: 05/30/2023 Time: 15:14 Bed 5 Private MD: ED Physician Marvin Haney HPI: 05/30 15:44 This 22 yrs old Male presents to ER via Ambulatory with complaints of Ear Pain, Leg jh7 Swelling. 15:44 Patient complains of right ear pain worsening over the past week. He also reports jh7 increased bilateral leg pain and swelling for the past 6 months. Reports a previous diagnosis of peripheral edema, but states that his legs have been aching. No other medical problems.. Historical: - Allergies: 15:44 NKDA; cm10 - Home Meds: 15:44 None [Active]; cm10 - PMHx: 15:44 None; cm10 - PSHx: 15:44 None; cm10 - Immunization history:: Adult Immunizations unknown. - Social history:: Smoking status: Patient denies any tobacco usage or history of. ROS: 15:44 Skin: Negative for injury, rash, and discoloration, Neuro: Negative for headache, jh7 weakness, numbness, tingling, and seizure, 15:44 ENT: Positive for drainage from ear(s), ear pain, 15:44 Cardiovascular: Positive for edema, Negative for chest pain, 15:44 MS/extremity: Positive for pain, swelling, of the Bilateral legs, 15:44 All other systems are negative, Exam: 15:44 Constitutional: This is a well developed, well nourished patient who is awake, alert, jh7 and in no acute distress. Head/Face: Normocephalic, atraumatic. Eyes: Pupils equal round and reactive to light, extra-ocular motions intact. Lids and lashes normal. Conjunctiva and sclera are non-icteric and not injected. Cornea within normal limits. Periorbital areas with no swelling, redness, or edema. Respiratory: Lungs have equal breath sounds bilaterally, clear to auscultation and percussion. No rales, rhonchi or wheezes noted. No increased work of breathing, no retractions or nasal flaring. Abdomen/GI: Soft, non-tender, with normal bowel sounds. No distension or tympany. No guarding or rebound. No evidence of tenderness throughout. Skin: Warm, dry with normal turgor. Normal color with no rashes, no lesions, and no evidence of cellulitis. MS/ Extremity: Pulses equal, no cyanosis. Neurovascular intact. Full, normal range of motion. Neuro: Awake and alert, GCS 15, oriented to person, place, time, and situation. Motor strength 5/5 in all extremities. Sensory grossly intact. Normal gait. 15:44 ENT: Ear canal(s): purulent discharge, in the right canal, swelling, of the right canal, TM's: are normal, 15:44 Cardiovascular: Edema: 3+ edema to level of left midcalf, left ankle, right midcalf and right ankle, Vital Signs: 15:43 BP 160 / 102; Pulse 101; Resp 18; Temp 98.8(TE); Pulse Ox 100% on R/A; Weight 181.44 cm10 kg; Height 5 ft. 1 in. ; Pain 7/10; 15:43 Body Mass Index 75.58 (181.44 kg, 154.94 cm) cm10 15:43 Pain Scale: Adult cm10 MDM: 15:41 Patient medically screened. [facility] 17:10 Differential diagnosis: otitis media, otitis externa, ruptured TM. Data reviewed: vital [facility] signs, nurses notes, lab test result(s), EKG, radiologic studies, plain films, ultrasound. Counseling: I had a detailed discussion with the patient and/or guardian regarding the historical points, exam findings, and any diagnostic results supporting the discharge/admit diagnosis, to return to the emergency department if symptoms worsen or persist or if there are any questions or concerns that arise at home. 05/30 15:48 Order name: Basic Metabolic Panel; Complete Time: 17:04 [facility] 05/30 15:48 Order name: CBC with Diff; Complete Time: 16:47 [facility] 05/30 15:48 Order name: NT PRO-BNP; Complete Time: 17:04 [facility] 05/30 15:48 Order name: PT-INR; Complete Time: 16:47 [facility] 05/30 15:48 Order name: Troponin HS; Complete Time: 17:04 [facility] 05/30 15:48 Order name: XRAY Chest (1 view); Complete Time: 17:04 [facility] 05/30 15:48 Order name: EKG; Complete Time: 15:48 [facility] 05/30 15:48 Order name: Cardiac monitoring; Complete Time: 16:51 [facility] 05/30 15:48 Order name: EKG - Nurse/Tech; Complete Time: 16:31 [facility] 05/30 15:48 Order name: IV Saline Lock; Complete Time: 16:31 [facility] 05/30 15:48 Order name: Labs collected and sent; Complete Time: 16:31 [facility] 05/30 15:48 Order name: O2 Per Protocol; Complete Time: 16:50 [facility] 05/30 15:48 Order name: O2 Sat Monitoring; Complete Time: 16:50 EC:33 Rate is 96 beats/min. Rhythm is regular. QRS [place] is Normal. NC interval is normal at [facility] 148 msec. QRS interval is normal at 84 msec. QT interval is normal at 346 msec. No Q waves. T waves are Normal. No ST changes noted. Clinical impression: NSR w/ Non-specific ST/T Changes. Administered Medications: No medications were administered Disposition Summary: 05/30/23 17:56 Discharge Ordered Notes: Location: Home [facility] Problem: new [facility] Symptoms: are unchanged [facility] Condition: Stable [facility] Diagnosis - Localized edema [facility] - Unspecified otitis externa, right ear [facility] Followup: [facility] - With: Private Physician - When: 2 - 3 days - Reason: Recheck today's complaints Discharge Instructions: - Discharge Summary Sheet [facility] - Ear Drops, Adult [facility] - Otitis Externa [facility] - Peripheral Edema [facility] Forms: - Medication Reconciliation Form [facility] - Thank You Letter [facility] - Antibiotic Education [facility] - Patient Portal Instructions [facility] - Leadership Thank You Letter [facility] Prescriptions: - ofloxacin 0.3 % Otic drops - instill 10 drop OTIC route daily for 7 days; 1 Each; Refills: 0, Product [facility] Selection Permitted Signatures: Dispatcher [employer] Terra Norwood FNP RECORDS MANAGEMENT CLERK [facility] Ashia Ramirez RN RN cm10 Corrections: (The following items were deleted from the chart) 17:57 17:56 Acute suppurative otitis media [place] [id number]
--- NOTE | 2023-05-30 21:57 | RAD REPORT ---
EXAM DESCRIPTION: US - Extrem Venous W Compress Abdon - 05/30/2023 6:35 pm CLINICAL HISTORY: Swelling COMPARISON: None. TECHNIQUE: Real-time sonographic evaluation of the bilateral lower extremity deep venous systems was performed. FINDINGS: Normal compressibility, flow augmentation, phasic flow and spontaneous flow is identified in both the left and right lower extremity deep venous systems. No intraluminal filling defects seen. IMPRESSION: No DVT in either lower extremity.
== END 2023-05-30 18:19 | disposition home or self-care (01) ==
LOC: ER 15:14
DX: H60.91 Unspecified otitis externa, right ear (principal); R60.0 Localized edema
CPT/HCPCS: 36415; 71045; 80048; 83880; 84484; 85025; 85610; 93005; 93970

== ENCOUNTER 2023-06-23 13:17 | Inpatient (IN) | payer SELFPAY ==
[2023-06-23] MEDS ORDERED: NA CHLORIDE 0.9% 2,000 ML ONE (14:12)
[2023-06-23 14:37] LABS: Absolute Lymphocytes (CBC) 1.8 K/uL (0.7-4.9); Hematocrit 34.5 % (39.6-49.0); MCV 79.4 fL (80-100); MPV 7.4 fL (7.6-11.3); Platelets 278 thou/uL (152-406); RBC Red Blood Cell Count 4.34 M/uL (4.33-5.43)
--- NOTE | 2023-06-23 14:43 | RAD REPORT ---
EXAM DESCRIPTION: CTAbdomen Pelvis W Contrast - 06/23/2023 2:26 pm CLINICAL HISTORY: Abdominal pain. NONA-RECTAL ABCESS COMPARISON: No comparisons TECHNIQUE: Biphasic CT imaging of the abdomen and pelvis was performed with 100 ml non-ionic IV cont rast. All CT scans are performed using dose optimization technique as appropriate and may include automated exposure control or mA/KV adjustment according to patient size. FINDINGS: The lung bases are clear. The liver, spleen, pancreas, adrenal glands and kidneys are within normal limits. No bowel obstruction, free air, free fluid or abscess. The appendix is normal. No evidence of signi ficant lymphadenopathy. Nonspecific 4 cm perirectal lesion is noted with mild adjacent soft tissue in flammation could be a perirectal abscess. No suspicious bony findings. IMPRESSION: 4 cm left-sided perirectal lesion is noted probably a perirectal abscess.
[2023-06-23] MEDS ORDERED: CIPROFLOXACIN 400mg IV 400 MG/200 ML BAG IV ONE (15:21)
[2023-06-23] MEDS ORDERED: METRONIDAZOLE 500mg IVPB 500 MG/100 ML BAG IV ONE (15:21)
[2023-06-23 15:52] LABS: Protime INR 1.36
[2023-06-23 16:18] LABS: Potassium 4.1 mEq/L (3.5-5.1)
[2023-06-23 16:20] LABS: Albumin 3.3 g/dL (3.4-5.0)
[2023-06-23 16:24] LABS: Bilirubin Total 0.7 mg/dL (0.2-1.0); Protein, Total 7.2 g/dL (6.4-8.2)
--- NOTE | 2023-06-23 16:30 | EDPHYS ---
Physician Documentation [facility] Name: Jeffrey Sevilla Age: 22 yrs Sex: Male : 2000 Arrival Date: 06/23/2023 Time: 13:17 Bed 17 Private MD: ED Physician Damien Choi HPI: 06/23 13:23 This 22 yrs old Male presents to ER via Ambulatory with complaints of Rectal jh7 Pain/Swelling. 13:23 Onset: The symptoms/episode began/occurred 4 day(s) ago. Associated signs and symptoms: jh7 Pertinent positives: fever, Pertinent negatives: abdominal pain, chest pain, shortness of breath, vomiting. Modifying factors: the patient symptoms are aggravated by movement. Historical: - Allergies: 13:29 NKDA; nj1 - PMHx: 13:29 None; nj1 - PSHx: 13:29 None; nj1 - Immunization history:: Client reports having NOT received the Covid vaccine. - Social history:: Smoking status: Patient denies any tobacco usage or history of. ROS: 13:23 Eyes: Negative for injury, pain, redness, and discharge, ENT: Negative for injury, jh7 pain, and discharge, Neck: Negative for injury, pain, and swelling, Cardiovascular: Negative for chest pain, palpitations, and edema, Respiratory: Negative for shortness of breath, cough, wheezing, and pleuritic chest pain, Back: Negative for injury and pain, MS/Extremity: Negative for injury and deformity, Skin: Negative for injury, rash, and discoloration, Neuro: Negative for headache, weakness, numbness, tingling, and seizure, 13:23 Constitutional: Positive for body aches, chills, 13:23 Abdomen/GI: Positive for rectal pain, Negative for abdominal pain, nausea, vomiting, and diarrhea, diarrhea, constipation, black/tarry stool, rectal bleeding, bowel incontinence, 13:23 All other systems are negative, Exam: 13:23 Constitutional: This is a well developed, well nourished patient who is awake, alert, jh7 and in no acute distress. Head/Face: Normocephalic, atraumatic. Eyes: Pupils equal round and reactive to light, extra-ocular motions intact. Lids and lashes normal. Conjunctiva and sclera are non-icteric and not injected. Cornea within normal limits. Periorbital areas with no swelling, redness, or edema. Neck: Trachea midline, no thyromegaly or masses palpated, and no cervical lymphadenopathy. Supple, full range of motion without nuchal rigidity, or vertebral point tenderness. No Meningismus. Cardiovascular: Regular rate and rhythm with a normal S1 and S2. No gallops, murmurs, or rubs. Normal PMI, no JVD. No pulse deficits. Respiratory: Lungs have equal breath sounds bilaterally, clear to auscultation and percussion. No rales, rhonchi or wheezes noted. No increased work of breathing, no retractions or nasal flaring. Back: No spinal tenderness. No costovertebral tenderness. Full range of motion. Skin: Warm, dry with normal turgor. Normal color with no rashes, no lesions, and no evidence of cellulitis. MS/ Extremity: Pulses equal, no cyanosis. Neurovascular intact. Full, normal range of motion. Neuro: Awake and alert, GCS 15, oriented to person, place, time, and situation. Motor strength 5/5 in all extremities. Sensory grossly intact. Normal gait. 13:23 Abdomen/GI: Rectal exam: swelling, that is moderate, tenderness, that is moderate, Left perineal erythema, swelling, and tenderness to palpation.. Vital Signs: 13:23 BP 151 / 105; Pulse 126; Resp 16; Temp 101.1(O); Pulse Ox 97% on R/A; Weight 181.44 kg; nj1 Height 5 ft. 11 in. ; Pain 5/10; 14:48 Pulse 110; Resp 18; Pulse Ox 100% on R/A; db 15:00 BP 135 / 74; Pulse 108; Resp 18; Pulse Ox 100% on R/A; db 15:30 BP 147 / 94; Pulse 103; Resp 24; Pulse Ox 100% on R/A; db 16:00 BP 157 / 52; Pulse 105; Resp 24; Pulse Ox 99% on R/A; db 16:30 BP 144 / 79; Pulse 106; Resp 20; Pulse Ox 96% on R/A; db 17:30 BP 157 / 61; Pulse 105; Resp 24; Temp 99.5(O); Pulse Ox 99% on R/A; db 13:23 Body Mass Index 55.79 (181.44 kg, 180.34 cm) nj1 13:23 Pain Scale: Adult nj1 MDM: 13:19 Patient medically screened. [facility] 16:00 Differential diagnosis: Perirectal abscess, cellulitis, perianal abscess, sepsis. Data [facility] reviewed: vital signs, nurses notes, lab test result(s), radiologic studies, CT scan. Consideration of Admission/Observation Patient was admitted/placed on observation. Management of patient was discussed with the following: Hospitalist: Eryn, Hospitalist for Dr. Valdes. Field Education Coordinator: Dr. Jimenez, General Surgery. I considered the following discharge prescriptions or medication management in the emergency department Medications were administered in the Emergency Department. See MAR. Care significantly affected by the following chronic conditions: Obesity. Counseling: I had a detailed discussion with the patient and/or guardian regarding the historical points, exam findings, and any diagnostic results supporting the discharge/admit diagnosis, the need for further work-up and treatment in the hospital. Response to treatment: the patient's symptoms have mildly improved after treatment. 06/23 13:34 Order name: Blood Culture Adult (2) [facility] 06/23 13:34 Order name: CBC with Diff; Complete Time: 14:56 [facility] 06/23 13:34 Order name: CMP; Complete Time: 16:30 [facility] 06/23 13:34 Order name: Lactate w/ 2H reflex if indic.; Complete Time: 14:47 [facility] 06/23 13:34 Order name: Protime (+inr); Complete Time: 15:53 [facility] 06/23 13:34 Order name: Ptt, Activated; Complete Time: 15:53 [facility] 06/23 13:34 Order name: Urinalysis w/ reflexes; Complete Time: 17:09 [facility] 06/23 17:48 Order name: T4 Free [facility] 06/23 17:48 Order name: Thyroid Stimulating Hormone [facility] 06/23 17:48 Order name: Basic Metabolic Panel [facility] 06/23 17:48 Order name: Basic Metabolic Panel [facility] 06/23 17:48 Order name: Basic Metabolic Panel [facility] 06/23 17:48 Order name: Basic Metabolic Panel [facility] 06/23 17:48 Order name: Basic Metabolic Panel [facility] 06/23 17:48 Order name: Basic Metabolic Panel [facility] 06/23 17:48 Order name: CBC with Automated Diff [facility] 06/23 17:48 Order name: CBC with Automated Diff [facility] 06/23 17:48 Order name: CBC with Automated Diff [facility] 06/23 17:48 Order name: CBC with Automated Diff [facility] 06/23 17:48 Order name: CBC with Automated Diff [facility] 06/23 17:48 Order name: CBC with Automated Diff [facility] 06/23 17:48 Order name: Magnesium [facility] 06/23 17:48 Order name: Magnesium [facility] 06/23 17:48 Order name: Magnesium EDMS 06/23 17:48 Order name: Magnesium [facility]MS 06/23 17:48 Order name: Magnesium EDMS 06/23 17:48 Order name: Magnesium EDMS 06/23 17:48 Order name: Phosphorus EDMS 06/23 17:48 Order name: Phosphorus EDMS 06/23 17:48 Order name: Phosphorus [facility]MS 06/23 17:48 Order name: Phosphorus [facility]MS 06/23 17:48 Order name: Phosphorus [facility]MS 06/23 17:48 Order name: Phosphorus [facility]MS 06/23 13:34 Order name: CT Abd/Pelvis - IV Contrast Only; Complete Time: 14:45 [facility] 06/23 13:34 Order name: EKG; Complete Time: 13:35 [facility] 06/23 17:48 Order name: CONS Physician Consult [facility]MS 06/23 13:34 Order name: Accucheck; Complete Time: 17:33 [facility] 06/23 13:34 Order name: Cardiac monitoring; Complete Time: 14:47 [facility] 06/23 13:34 Order name: EKG - Nurse/Tech; Complete Time: 17:33 [facility] 06/23 13:34 Order name: IV Saline Lock - Large Bore; Complete Time: 14:47 [facility] 06/23 13:34 Order name: Labs collected and sent; Complete Time: 14:47 [facility] 06/23 13:34 Order name: O2 Per Protocol; Complete Time: 14:47 [facility] 06/23 13:34 Order name: O2 Sat Monitoring; Complete Time: 14:47 [facility] 06/23 13:34 Order name: Vital Signs; Complete Time: 14:47 [facility] 06/23 14:36 Order name: Labs - recollect needed: green top, and blue ; Complete Time: 16:04 [facility] 06/23 15:18 Order name: Recheck Vital Signs; Complete Time: 16:04 [facility] 11/17 16:27 Order name: Recheck Vital Signs; Complete Time: 16:52 7 EC:05 Rate is 107 beats/min. Rhythm is regular. QRS [place] is Normal. IA interval is normal at [facility] 140 msec. QRS interval is normal at 88 msec. QT interval is normal at 322 msec. No Q waves. T waves are Normal. No ST changes noted. Clinical impression: Sinus tachycardia. Administered Medications: 13:55 CANCELLED (Physician Discretion): ns 0.9% (30 ml/kg) 30 ml/kg IV at bolus once; Sepsis [facility] Protocol 14:00 Drug: Acetaminophen PO 1000 mg PO once Route: PO; db 19:19 Follow up: Response: No adverse reaction db 14:15 Drug: NS 0.9% IV 1000 ml IV at 1 bolus Per protocol; 1000 mL bolus Route: IV; Rate: 1 db bolus; Site: right antecubital; 18:30 Follow up: Response: No adverse reaction; IV Status: Completed infusion; IV Intake: db 1000ml 14:15 Drug: NS 0.9% IV 1000 ml IV at 1 bolus Per protocol; 1000 mL bolus Route: IV; Rate: 1 db bolus; Site: right antecubital; 18:31 Follow up: Response: No adverse reaction; IV Status: Completed infusion; IV Intake: db 1000ml 15:29 Drug: metroNIDAZOLE IVPB 500 mg 100 ml IVPB at 200 ml/hr once over 30 mins Volume: 100 db ml; Route: IVPB; Rate: 200 ml/hr; Infused Over: 30 mins; Site: right antecubital; 16:00 Follow up: Response: No adverse reaction; IV Status: Completed infusion; IV Intake: db 100ml 16:10 Drug: Ciprofloxacin IVPB 400 mg 200 ml IVPB once over 60 mins Volume: 200 ml; Route: db IVPB; Infused Over: 60 mins; Site: right antecubital; 18:00 Follow up: Response: No adverse reaction; IV Status: Completed infusion; IV Intake: db 200ml Disposition Summary: 06/23/23 16:30 Hospitalization Ordered Notes: Hospitalization Status: Inpatient Admission [facility] Provider: Eduardo Valdes Location: Telemetry/MedSurg (Inpatient) [facility] Condition: Fair [facility] Problem: new [facility] Symptoms: are unchanged [facility] Bed/Room Type: Standard [facility] Room Assignment: 221(06/23/23 18:02) Diagnosis - Perirectal abscess [facility] - Severe sepsis without septic shock [facility] Forms: - Medication Reconciliation Form [facility] - SBAR form [facility] - Leadership Thank You Letter [facility] Addendum: 06/28/2023 07:21 Co-signature as Attending Physician, Damien Choi MD I reviewed the patient's care r n provided by the Advanced Practice Provider and agree with the diagnosis and treatment plan. Signatures: Dispatcher [employer] EDCT Damien Choi MD MD rn Botello, Elizabeth eb Hadash, Jennifer, SLUBBER MACHINE OPERATOR SLUBBER MACHINE OPERATOR [facility] Latrice Montemayor RN RN Eve Wellington 6 Carmen Allen RN RN nj1 Corrections: (The following items were deleted from the chart) 06/23 13:55 13:34 NS 0.9% IV (30 ml/kg) 30 ml/kg IV at bolus once; Sepsis Protocol ordered. [place] [id number] 18:02 16:30 [facility] eb
--- NOTE | 2023-06-23 16:30 | ER ---
Nurse's Notes [facility] Name: Jeffrey Sevilla Age: 22 yrs Sex: Male : 2000 Arrival Date: 06/23/2023 Time: 13:17 Bed 17 [facility] MD: Diagnosis: Perirectal abscess;Severe sepsis without septic shock Presentation: 06/23 13:23 Chief complaint: Patient states: Perineal pain, swelling since Monday. Denies fever. [facility] Coronavirus screen: Vaccine status: Patient reports being unvaccinated. Ebola Screen: Patient denies travel to an Ebola-affected area in the 21 days before illness onset. Initial Sepsis Screen: Does the patient meet any 2 criteria? Temp <36.0*C (96.8*F)) or > 38.3*C (100.9*F). HR > 90 bpm. Yes Does the patient have a suspected source of infection? Yes: Skin breakdown/wound If YES to both, name of provider notified: Terra PAINTING. Risk Assessment: Do you want to hurt yourself or someone else? Patient reports no desire to harm self or others. Onset of symptoms was June 20, 2023. 13:23 Method Of Arrival: Ambulatory [facility] 13:23 Acuity: NNEKA 2 [facility] Triage Assessment: 16:52 General: Appears in no apparent distress. comfortable, Behavior is calm, cooperative. db Historical: - Allergies: 13:29 NKDA; nj1 - PMHx: 13:29 None; nj1 - PSHx: 13:29 None; nj1 - Immunization history:: Client reports having NOT received the Covid vaccine. - Social history:: Smoking status: Patient denies any tobacco usage or history of. Screenin:49 [facility] ED Fall Risk Assessment (Adult) History of falling in the last 3 months, db including since admission No falls in past 3 months (0 pts) Score/Fall Risk Level 0 - 2 = Low Risk Oriented to surroundings, Maintained a safe environment. Abuse screen: Denies threats or abuse. Denies injuries from another. Nutritional screening: No deficits noted. Tuberculosis screening: No symptoms or risk factors identified. Assessment: 13:35 Reassessment: Patient appears in no apparent distress at this time. Patient and/or db family updated on plan of care and expected duration. Pain level reassessed. Patient is alert, oriented x 3, equal unlabored respirations, skin warm/dry/pink. PATIENT AMBULATORY TO ROOM. FAMILY WITH PT. 13:35 Reassessment: CODE SEPSIS CALLED BY TEST LEAD. db 14:00 Reassessment: Patient appears in no apparent distress at this time. Patient and/or db family updated on plan of care and expected duration. Pain level reassessed. Patient is alert, oriented x 3, equal unlabored respirations, skin warm/dry/pink. ABSCESS WOUND TO LEFT BUTTOCK. General: Appears in no apparent distress. comfortable, Behavior is calm, cooperative. Pain: Complains of pain in buttocks. Neuro: Level of Consciousness is awake, alert, obeys commands, Oriented to person, place, time, situation. 14:16 Reassessment: PATIENT TO CT. db 15:00 Reassessment: Patient appears in no apparent distress at this time. No changes from db previously documented assessment. Patient and/or family updated on plan of care and expected duration. Pain level reassessed. Patient is alert, oriented x 3, equal unlabored respirations, skin warm/dry/pink. 16:00 Reassessment: Patient appears in no apparent distress at this time. No changes from db previously documented assessment. Patient and/or family updated on plan of care and expected duration. Pain level reassessed. Patient is alert, oriented x 3, equal unlabored respirations, skin warm/dry/pink. 17:00 Reassessment: Patient appears in no apparent distress at this time. No changes from db previously documented assessment. Patient and/or family updated on plan of care and expected duration. Pain level reassessed. Patient is alert, oriented x 3, equal unlabored respirations, skin warm/dry/pink. 18:15 Reassessment: CALLED FLOOR TO GIVE REPORT. NO ANSWER. db 18:15 Reassessment: Patient appears in no apparent distress at this time. Patient and/or db family updated on plan of care and expected duration. Pain level reassessed. Patient is alert, oriented x 3, equal unlabored respirations, skin warm/dry/pink. 18:43 Reassessment: REPORT GIVEN TO RN ON 2ND FLOOR FOR PATIENT GOING TO 221. db Vital Signs: 13:23 BP 151 / 105; Pulse 126; Resp 16; Temp 101.1(O); Pulse Ox 97% on R/A; Weight 181.44 kg; nj1 Height 5 ft. 11 in. ; Pain 5/10; 14:48 Pulse 110; Resp 18; Pulse Ox 100% on R/A; db 15:00 BP 135 / 74; Pulse 108; Resp 18; Pulse Ox 100% on R/A; db 15:30 BP 147 / 94; Pulse 103; Resp 24; Pulse Ox 100% on R/A; db 16:00 BP 157 / 52; Pulse 105; Resp 24; Pulse Ox 99% on R/A; db 16:30 BP 144 / 79; Pulse 106; Resp 20; Pulse Ox 96% on R/A; db 17:30 BP 157 / 61; Pulse 105; Resp 24; Temp 99.5(O); Pulse Ox 99% on R/A; db 13:23 Body Mass Index 55.79 (181.44 kg, 180.34 cm) nj1 13:23 Pain Scale: Adult nj1 ED Course: 13:19 Patient arrived in ED. rg4 13:19 Terra Cortés FNP is [facility]. 7 13:19 Damien Choi MD is Attending Physician. 7 13:29 Triage completed. nj1 13:30 Arm band placed on left wrist. nj1 13:35 Latrice Montemayor, RN is Primary Nurse. db 14:02 Inserted saline lock: 20 gauge in right antecubital area, using aseptic technique. db Blood collected. 14:17 Second set of blood cultures drawn by ED staff. db 14:28 CT Abd/Pelvis - IV Contrast Only In Process Unspecified. EDMS 14:49 Patient has correct armband on for positive identification. Placed in gown. Bed in low db position. Call light in reach. Side rails up X 1. Client placed on continuous cardiac and pulse oximetry monitoring. NIBP monitoring applied. Warm blanket given. 15:16 EKG done, by ED staff. 3 16:29 Eduardo Valdes MD is Hospitalizing Provider. [facility] 18:42 Provided Education on: DISCHARGE. db 18:42 No provider procedures requiring assistance completed. Patient admitted, IV remains in db place. Administered Medications: 13:55 CANCELLED (Physician Discretion): ns 0.9% (30 ml/kg) 30 ml/kg IV at bolus once; Sepsis [facility] Protocol 14:00 Drug: Acetaminophen PO 1000 mg PO once Route: PO; db 19:19 Follow up: Response: No adverse reaction db 14:15 Drug: NS 0.9% IV 1000 ml IV at 1 bolus Per protocol; 1000 mL bolus Route: IV; Rate: 1 db bolus; Site: right antecubital; 18:30 Follow up: Response: No adverse reaction; IV Status: Completed infusion; IV Intake: db 1000ml 14:15 Drug: NS 0.9% IV 1000 ml IV at 1 bolus Per protocol; 1000 mL bolus Route: IV; Rate: 1 db bolus; Site: right antecubital; 18:31 Follow up: Response: No adverse reaction; IV Status: Completed infusion; IV Intake: db 1000ml 15:29 Drug: metroNIDAZOLE IVPB 500 mg 100 ml IVPB at 200 ml/hr once over 30 mins Volume: 100 db ml; Route: IVPB; Rate: 200 ml/hr; Infused Over: 30 mins; Site: right antecubital; 16:00 Follow up: Response: No adverse reaction; IV Status: Completed infusion; IV Intake: db 100ml 16:10 Drug: Ciprofloxacin IVPB 400 mg 200 ml IVPB once over 60 mins Volume: 200 ml; Route: db IVPB; Infused Over: 60 mins; Site: right antecubital; 18:00 Follow up: Response: No adverse reaction; IV Status: Completed infusion; IV Intake: db 200ml Medication: 18:42 VIS not applicable for this client. db Intake: 16:00 IV: 100ml; Total: 100ml. db 18:00 IV: 200ml; Total: 300ml. db 18:30 IV: 1000ml; Total: 1300ml. db 18:31 IV: 1000ml; Total: 2300ml. db Outcome: 16:30 Decision to Hospitalize by Provider. 7 18:40 Admitted to Med/surg db 18:40 Condition: stable 18:40 Instructed on the need for admit, 19:19 Patient left the ED. db Signatures: Dispatcher [employer] EDMS Roverto Vogel Rubi rg4 Terra Cortés, FERRULER FERRULER 7 Latrice Montemayor, RN RN db Carmen Allen RN RN nj1 Corrections: (The following items were deleted from the chart) 18:45 17:30 BP 157 / 61; Pulse 105bpm; Resp 24bpm; Pulse Ox 99% RA; db db
[2023-06-23 17:06] LABS: Urine Bilirubin NEGATIVE (Negative); Urine Blood Negative (Negative); Urine Clarity Clear (Clear); Urine Color Light-Yellow (Yellow); Urine Glucose NEGATIVE (Negative); Urine Protein NEGATIVE (Negative); Urine Urobilinogen Normal (Normal); Urine pH 6.5 (5.0-7.0)
[2023-06-23 17:07] LABS: Specific Gravity > 1.030 (1.005-1.030)
[2023-06-23] MEDS ORDERED: CIPROFLOXACIN 400mg IV 400 MG/200 ML BAG IV SCH (21:00)
--- NOTE | 2023-06-23 21:34 | P.HP ---
Certification for Inpatient Patient admitted to: Observation With expected LOS: >2 Midnights Patient will require the following post-hospital care: None Practitioner: I am a practitioner with admitting privileges, knowledge of patient current condition, hospital course, and medical plan of care. Services: Services provided to patient in accordance with Admission requirements found in Title 42 Section 412.3 of the Code of Federal Regulations Patient History Date of Service: 06/23/23 Reason for admission: Rectal pain and swelling History of Present Illness: Dalton Sevilla is a 22-year-old male with no past medical history who presents to the ED complaining of rectal pain and swelling for the past 4 days. Dalton reports chaffing in the past and able to relieve with baby powder and nystatin cream. He reports going up and down ladders and noticing worsening of pain. He states seeing blood on toilet paper several months ago but did not believe it was part of this issue. While in the ED he was given 2 L NS, ciprofloxacin and Flagyl. Blood cultures sent from the ED. Initial vitals BP 151 / 105; Pulse 126; Resp 16; Temp 101.1(O); Pulse Ox 97% on R/A. Significant labs WBC 12, lactic 2.1, other labs unremarkable, and UA negative. CT abdomen pelvis report "The liver, spleen, pancreas, adrenal glands and kidneys are within normal limits. No bowel obstruction, free air, free fluid or abscess. The appendix is normal. No evidence of significant lymphadenopathy. Nonspecific 4 cm perirectal lesion is noted with mild adjacent soft tissue inflammation could be a perirectal abscess." Dalton will be admitted to hospitalist service for further evaluation and treatment, Dr. Jimenez consulted and he will be n.p.o. at midnight for surgery in the a.m. Allergies No Known Allergies Allergy (Unverified 06/23/23 18:07) Review of Systems General: Fever Eyes: Unremarkable ENT: Unremarkable Respiratory: Unremarkable Gastrointestinal: Other (Pain to perirectal area) Genitourinary: Unremarkable Musculoskeletal: Unremarkable Physical Examination - Vital Signs Temperature: 99.5 F Blood Pressure: 157/61 Pulse: 105 Respirations: 24 - Physical Exam General: Alert, In no apparent distress, Oriented x3 HEENT: Atraumatic, Normocephalic, PERRLA Neck: Supple, 2+ carotid pulse no bruit, JVD not distended Respiratory: Clear to auscultation bilaterally, Normal air movement Cardiovascular: No edema, Normal pulses, Normal S1 S2, Irregular heart rate/rhy thm (tachycardic) Capillary refill: <2 Seconds Gastrointestinal: Normal bowel sounds, Soft and benign Musculoskeletal: No clubbing, No swelling, No contractures Integumentary: No rashes, No breakdown, No significant lesion Neurological: Normal speech, Normal strength at 5/5 x4 extr, Normal tone Rectal: Enlarged, Tenderness - Studies Laboratory Data (last 24 hrs) 06/23/23 06/23/23 06/23/23 15:35 15:35 14:02 WBC 12.00 H Hgb 11.4 L Hct 34.5 L Plt Count 278 PT 15.0 H INR 1.36 APTT 30.2 Sodium 135 L Potassium 4.1 BUN 10 Creatinine 0.77 Glucose 96 Total Bilirubin 0.7 AST 13 L ALT 38 Alkaline Phosphatase 55 Assessment and Plan - Plan Assessment and plan Sepsis secondary to acute perirectal abscess Leukocytosis Lactic acidosis WBC 12, lactic acid 2.1, Heart rate 126, respirations 24 CT abdomen pelvis report " 4 cm left-sided perirectal lesion is noted probably a perirectal abscess" Blood culture sent from the ED Dr. Jimenez Consulted, likely surgery in the AM NPO at midnight Pain control Cipro/flagyl IVF hypertensive disorder Labetalol as needed for SBP > 170 Monitor every 4 hours DVT PPx SCDs pending surgery Full code LOS 2 to 3 days Discharge Plan: Home - Advance Directives Does patient have a Living Will: No Does patient have a Durable POA for Healthcare: No Time Spent Managing Pts Care (In Minutes): 55
[2023-06-23] MEDS ORDERED: METOPROLOL TARTRATE 5 MG/5 ML INJ IV PRN (21:45)
[2023-06-23] MEDS: NA CHLORIDE 0.9% 1,000 ML IV SCH (21:59)
[2023-06-23] MEDS: MORPHINE 2 MG/ML SYR IV PRN (22:02)
[2023-06-23 22:07] LABS: Thyroid Stimulating Hormone 2.07 uIU/mL (0.358-3.740)
[2023-06-23] MEDS: CIPROFLOXACIN 400mg IV 400 MG/200 ML BAG IV SCH (22:50)
[2023-06-23 23:15] VITALS: BMI 55.7
[2023-06-24] MEDS: METRONIDAZOLE 500mg IVPB 500 MG/100 ML BAG IV SCH ×3 (00:12→16:54)
[2023-06-24 02:38] LABS: Absolute Lymphocytes (CBC) 2.8 K/uL (0.7-4.9); Hematocrit 32.4 % (39.6-49.0); Lymphocytes % 25.8 % (15.3-44.8); MCV 79.7 fL (80-100); MPV 7.2 fL (7.6-11.3); Platelets 237 thou/uL (152-406); RBC Red Blood Cell Count 4.07 M/uL (4.33-5.43)
[2023-06-24 02:51] LABS: Magnesium 2.1 mg/dL (1.6-2.4); Phosphorus 3.7 mg/dL (2.5-4.9); Potassium 3.7 mEq/L (3.5-5.1)
[2023-06-24] MEDS: MORPHINE 2 MG/ML SYR IV PRN (05:29)
[2023-06-24] MEDS ORDERED: KCL 20 MEQ/100 mL IVPB 20 MEQ/100 ML BAG IV SCH (06:00)
[2023-06-24] MEDS ORDERED: SUCCINYLCHOLINE 20 MG/ML (10 ML) IV ONE (08:39)
[2023-06-24] MEDS ORDERED: FENTANYL CITR 100 MCG/2 ML ONE ×2 (08:54→09:46)
[2023-06-24] MEDS ORDERED: propofoL 200 MG/20 ML VIAL IV ONE (08:54)
[2023-06-24] MEDS ORDERED: LIDOCAINE 2% MPF 5 ML VIAL ONE (08:54)
[2023-06-24] MEDS ORDERED: MIDAZOLAM HCL 2 MG/2 ML INJ ONE (08:54)
[2023-06-24] MEDS ORDERED: ROCURONIUM 50 MG/5 ML VIAL IV ONE (08:59)
[2023-06-24] MEDS ORDERED: ONDANSETRON 4 MG/2 ML VIAL ONE (08:59)
--- NOTE | 2023-06-24 09:00 | P.CNS ---
Date of Consult: 06/24/23 Reason for consult: Perirectal abscess History of present illness: Patient is a 22-year-old gentleman presents to the emergency room with 4-day history of left perirectal pain associated with fever and chills. Patient denies any discharge. Patient never had similar symptoms before. Patient denies sore throat, runny nose, cough, headache, dizziness or chest pain. Review of systems: Otherwise unremarkable Past medical history: Morbid obesity Past surgical history: Negative Allergies: No allergies Social history: Denies smoking or drinking alcohol Family history: Noncontributory Vital signs: Currently stable, afebrile with a temperature of 99.0 Physical exam: Awake, alert and oriented x3 Head and neck exam: No masses Chest: Clear Heart: S1-S2 Abdomen: Soft Extremity: Neurovascular intact Neuro: Nonfocal Diagnostic data: Slight leukocytosis which has improved, lactic acid was 2.1. CT of the abdomen pelvis showed 4 cm abscess on the left side of the anus, consistent with perirectal abscess. Assessment: Perirectal abscess Plan/recommendation: Admit, n.p.o., IV fluids, IV antibiotics and to the OR for exam under anesthesia, proctoscopy and incision, drainage and debridement of perirectal abscess. Patient understands risks, benefits and alternatives and agrees to procedure. CC:
[2023-06-24] MEDS ORDERED: Ringers Lactate 1,000 ML IV ONE (09:08)
--- NOTE | 2023-06-24 09:52 | P.OP ---
Date of Service: 06/24/23 Preop diagnosis: Left perirectal abscess Postop diagnosis: Same Procedure performed: Examiner anesthesia, rigid proctoscopy and incision, drainage and debridement of left perirectal abscess Surgeon: Fab Jimenez MD Environmental Engineering Assistant: None Estimated blood loss: Minimal Specimen: Pus and necrotic tissue Findings: As above Anesthesia: General Complications: None Drains: None Fluids and blood products: Nonapplicable Disposition: Recovery room Operative note: Patient brought to the OR and placed in the supine position. General anesthesia begun. Patient placed in the lithotomy position and prepped and draped in the usual sterile fashion. Exam under anesthesia revealed a abscess approximately 4 x 6 cm in the left anterior portion of the anus. There was a necrotic center approximately 2.5 cm in the center of this abscess. There was fluctuance and induration and redness and warmth. Proctoscopy did not reveal any internal evidence of disease. Marcaine 0.5% infiltrated locally for postop pain control. 15 blade used to make approximately a 4 x 2 cm incision to excise all of the necrotic tissue and to evacuate pus under pressure. Cultures done and wound irrigated. Necrotic tissue debrided. Bleeding controlled cautery. Wet-to-dry normal saline dressing change done. Sterile dressing applied. Patient awakened and taken to recovery room in good general condition. CC:
[2023-06-24] MEDS ORDERED: HYDROMORPHONE HCL 1 MG/ML INJ IV PRN (10:23)
[2023-06-24] MEDS: CIPROFLOXACIN 400mg IV 400 MG/200 ML BAG IV SCH ×2 (11:32→21:10)
[2023-06-24] MEDS: NA CHLORIDE 0.9% 1,000 ML IV SCH (21:10)
[2023-06-24] MEDS: HYDROCODONE/APAP 7.5/325 MG TAB PO PRN (21:13)
[2023-06-25] MEDS: METRONIDAZOLE 500mg IVPB 500 MG/100 ML BAG IV SCH ×3 (00:12→16:34)
[2023-06-25] MEDS: NA CHLORIDE 0.9% 1,000 ML IV SCH ×2 (00:40→13:36)
[2023-06-25 04:09] LABS: Absolute Lymphocytes (CBC) 2.1 K/uL (0.7-4.9); Lymphocytes % 27.9 % (15.3-44.8); MCV 80.4 fL (80-100); MPV 7.2 fL (7.6-11.3); Platelets 271 thou/uL (152-406); RBC Red Blood Cell Count 4.22 M/uL (4.33-5.43)
[2023-06-25 04:24] LABS: Magnesium 2.3 mg/dL (1.6-2.4); Potassium 3.6 mEq/L (3.5-5.1)
[2023-06-25] MEDS: HYDROCODONE/APAP 7.5/325 MG TAB PO PRN ×4 (06:44→20:27)
[2023-06-25] MEDS: CIPROFLOXACIN 400mg IV 400 MG/200 ML BAG IV SCH ×2 (08:39→20:27)
[2023-06-25] MEDS ORDERED: POTASSIUM CL SA 10 MEQ TAB PO ONE (09:00)
--- NOTE | 2023-06-25 10:43 | PN ---
Date of Progress Note: 06/25/2023 Subjective: The patient with no complaints. Vitals stable, afebrile. Cultures are pending. Dressi ng is clean, dry, intact. Assessment: Status post incision, drainage and debridement of perirectal abscess. Recommendations: We will check cultures and adjust antibiotics accordingly. Wound care as ordered. Family is being trained on how to do that. The patient will likely be discharged tomorrow. /MODL Voice ID: [id number] Report ID: [id number]
[2023-06-26 00:02] VITALS: O2SAT 98
[2023-06-26] MEDS: METRONIDAZOLE 500mg IVPB 500 MG/100 ML BAG IV SCH ×2 (00:57→11:32)
[2023-06-26] MEDS: NA CHLORIDE 0.9% 1,000 ML IV SCH (00:58)
[2023-06-26] MEDS: HYDROCODONE/APAP 7.5/325 MG TAB PO PRN ×2 (01:06→09:58)
[2023-06-26 02:51] LABS: Absolute Lymphocytes (CBC) 1.8 K/uL (0.7-4.9); Hematocrit 34.9 % (39.6-49.0); Lymphocytes % 26.7 % (15.3-44.8); MCV 80.4 fL (80-100); MPV 7.4 fL (7.6-11.3); Platelets 208 thou/uL (152-406); RBC Red Blood Cell Count 4.35 M/uL (4.33-5.43)
--- NOTE | 2023-06-26 05:08 | P.PN ---
Date of Service: 06/24/23 Subjective Patient is doing better after surgery. Still having some pain. States pressure is relieved. We will work on dressing changes. Physical Examination - Vital Signs reviewed - Physical Exam General: Alert, In no apparent distress, Oriented x3 Respiratory: Clear to auscultation bilaterally, Normal air movement Cardiovascular: No edema, Normal pulses, Normal S1 S2, Irregular heart rate/rhythm (tachycardic) Gastrointestinal: Normal bowel sounds, Soft and benign Musculoskeletal: No clubbing, No swelling, No contractures Integumentary: No rashes, No breakdown, No significant lesion Neurological: Normal speech, Normal strength at 5/5 x4 extr, Normal tone Rectal: Tenderness Assessment and Plan - Assessment and Plan Assessment and plan Sepsis secondary to acute perirectal abscess Leukocytosis Lactic acidosis Continue with IV fluids and IV antibiotic therapy. Continue with pain control. Hypertensive disorder Continue with strict blood pressure control DVT PPx SCDs Full code LOS 2 to 3 days Discharge Plan: Home - Advance Directives Does patient have a Living Will: No Does patient have a Durable POA for Healthcare: No Time Spent Managing Pts Care (In Minutes): 30
--- NOTE | 2023-06-26 05:09 | P.PN ---
Date of Service: 06/25/23 Subjective Patient continues to improve. Have instructed patient on how to do dressing changes. His is understanding and is agreeable. Will instruct again in the morning and anticipate discharge home in the morning. Physical Examination - Vital Signs reviewed - Physical Exam General: Alert, In no apparent distress, Oriented x3 Respiratory: Clear to auscultation bilaterally Cardiovascular: Tachycardic but no murmurs Gastrointestinal: Normal bowel sounds, Soft and benign Musculoskeletal: No clubbing, No swelling, No contractures Integumentary: No rashes, No breakdown, No significant lesion Neurological: No focal deficits Rectal: Tenderness Assessment and Plan - Assessment and Plan Assessment and plan Sepsis secondary to acute perirectal abscess Leukocytosis Lactic acidosis Continue with IV fluids and IV antibiotic therapy. Continue with pain control. Hypertensive disorder Continue with strict blood pressure control DVT PPx SCDs Full code LOS 2 to 3 days Discharge Plan: Home - Advance Directives Does patient have a Living Will: No Does patient have a Durable POA for Healthcare: No Time Spent Managing Pts Care (In Minutes): 30
[2023-06-26 09:51] VITALS: BP 148/72; TEMP 96.9
[2023-06-26] MEDS: CIPROFLOXACIN 400mg IV 400 MG/200 ML BAG IV SCH (09:59)
--- NOTE | 2023-06-26 11:19 | P.DS ---
Admission Date: 06/23/23 Discharge Date: 06/26/23 Disposition: ROUTINE DISCHARGE Discharge Condition: GOOD Reason for Admission: Rectal pain and swelling Consultations: General surgeon. Brief History of Present Illness: 22 y o male pt admitted for management of rectal pain and found to have abscess. he was staretd on IV antibuiotics and was placed on antibiotic and had urgent I&D of abscess. Hospital Course: He responded well to treatment and was started on post I7D care with sitz bathing. he also did have no issues with dressing changes and modality of care. he was deemed stable for DC to continue with sitz bathing and routine care of his abscess wound. antibiotics and he will follow up with surgeon as scheduled outpt. Vital Signs/Physical Exam: Temp Pulse Resp BP Pulse Ox 96.9 F 86 19 148/72 H 100 06/26/23 08:00 06/26/23 08:00 06/26/23 09:58 06/26/23 08:00 06/26/23 09:58 Laboratory Data at Discharge: WBC 6.70 thou/uL (4.3-10.9) 06/26/23 02:10 Hgb 11.5 g/dL (13.6-17.9) L 06/26/23 02:10 Hct 34.9 % (39.6-49.0) L 06/26/23 02:10 Plt Count 208 thou/uL (152-406) 06/26/23 02:10 PT 15.0 SECONDS (9.5-12.5) H 06/23/23 15:35 INR 1.36 06/23/23 15:35 APTT 30.2 SECONDS (24.3-36.9) 06/23/23 15:35 Sodium 138 mEq/L (136-145) 06/26/23 02:10 Potassium 4.0 mEq/L (3.5-5.1) 06/26/23 02:10 BUN 8 mg/dL (7-18) 06/26/23 02:10 Creatinine 0.58 mg/dL (0.70-1.30) L 06/26/23 02:10 Glucose 135 mg/dL (74-106) H 06/26/23 02:10 Phosphorus 4.0 mg/dL (2.5-4.9) 06/26/23 02:10 Magnesium 2.0 mg/dL (1.6-2.4) 06/26/23 02:10 Total Bilirubin 0.7 mg/dL (0.2-1.0) 06/23/23 15:35 AST 13 U/L (15-37) L 06/23/23 15:35 ALT 38 U/L (16-61) 06/23/23 15:35 Alkaline Phosphatase 55 U/L (45-117) 06/23/23 15:35 Home Medications: Amox/Clavulanate [Augmentin 875-125 Tab] 875 mg PO BID #20 tab 06/26/23 Hydrocodone 10/APAP 325 [[place] 10/325] 1 tab PO Q6H PRN #30 tab 06/26/23 New Medications: Amox/Clavulanate [Augmentin 875-125 Tab] 875 mg PO BID #20 tab Hydrocodone 10/APAP 325 [[place] 10/325] 1 tab PO Q6H PRN #30 tab PRN Reason: Pain Physician Discharge Instructions: -DC IV and DC home -Follow-up with PCP in 1 to 2 weeks -Follow-up with Surgery, Dr. Jimenez, in 1 to 2 weeks -Please call Dr. Valdes at [phone] if any questions regarding hospital stay -Please call nursing station at [phone] if any nursing or medication questions -Return to the emergency room if symptoms worsen Sitz bath and wet-to-dry dressing changes after bowel movements Diet: Regular Activity: Fall precautions Followup: NONE,NONE [Primary Care Provider] - Fab Jimenez MD [ACTIVE - CAN ADMIT] - 1 Week
--- NOTE | 2023-06-26 14:37 | PN ---
Date of Progress Note: 06/26/2023 Subjective: Patient is awake, alert. Vital stable, afebrile. Laboratory Data: Reviewed. White count is 6.7, there is no left shift. Gram stain shows alpha hemo lytic Streptococcus organism 4+, 1+ gram-positive cocci in clusters and gram-negative rods. Dressing is clean, dry, intact. Assessment: Status post incision, drainage, and debridement of left perirectal abscess. Recommendations: Discussed with Dr. Valdes. Patient can be discharged home on Augmentin. Wound care as ordered. Follow up in my office in 1 week. /MODL Voice ID: [id number] Report ID: [id number]
--- NOTE | 2023-06-28 17:10 | EKG ---
Test Date: 2023-06-23 Test Time: 15:05:34 Gun Examiner: ANDREY MEASUREMENT RESULTS: Intervals: Rate: 107 TX: 140 QRSD: 88 QT: 322 QTc: 429 [place]: P: 53 TX: 140 QRS: 56 T: 32 INTERPRETIVE STATEMENTS: Sinus tachycardia Otherwise normal ECG Compared to ECG 05/30/2023 16:33:58 Sinus rhythm no longer present Myocardial infarct finding no longer present Electronically Signed On 06-28-23 16:56:05 CODING AUDITOR by Mingo Ojeda
== END 2023-06-26 14:45 | disposition home or self-care (01) | DRG 854 ==
LOC: ER 13:17 → ERHOLD 18:21 → 2ND 18:39
PROVIDERS: ADMIT Hospitalist; ATTEND Hospitalist
PROC: 0JB90ZZ Excision of Buttock Subcutaneous Tissue and Fascia, Open Approach (ICD-10-PCS; principal; 2023-06-24 08:45)
DX: A41.9 Sepsis, unspecified organism (principal); E87.20 Acidosis, unspecified; K61.1 Rectal abscess; Z68.43 Body mass index [BMI] 50.0-59.9, adult; E66.01 Morbid (severe) obesity due to excess calories; R65.20 Severe sepsis without septic shock; I10 Essential (primary) hypertension; Z28.310 Unvaccinated for COVID-19
CPT/HCPCS: 36415; 74177; 80048; 80053; 81003; 83605; 83735; 84100; 84439; 84443; 85025; 85610; 85730; 87040; 87070; 87075; 87205; 88304; 93005; 94010; 96361; 96365; 96367; 99285; J0744; J1170; J2001; J2250; J2270; J2405; J2704; J3010; J3480; J7030; J7120; Q9967

== ENCOUNTER 2024-04-24 17:11 | Emergency (ER) | payer OTHER ==
[2024-04-24 19:11] LABS: Absolute Basophils 0.1 K/uL (0-0.5); Absolute Eosinophils 0.4 K/uL (0-0.5); Absolute Lymphocytes (CBC) 2.3 K/uL (0.7-4.9); Absolute Monocytes 0.7 K/uL (0.1-1.3); Absolute Neutrophil 8.7 K/uL (1.8-8.0); Basophils % 0.5 % (0-1.3); Eosinophils % 2.9 % (0-4.4); Hematocrit 39.7 % (39.6-49.0); Lymphocytes % 19.2 % (15.3-44.8); MCH 26.1 pg (27.0-35.0); MCHC 32.8 g/dL (32.0-36.0); MCV 79.5 fL (80-100); Neutrophils % 71.4 % (41.7-73.7); Platelets 295 thou/uL (152-406); RBC Red Blood Cell Count 4.99 M/uL (4.33-5.43); Red Cell Distribution Width 14.6 % (12.1-15.2)
[2024-04-24 19:13] LABS: Protime INR 1.35
--- NOTE | 2024-04-24 19:22 | RAD REPORT ---
Procedure: Chest Single View History: Shortness of breath Comparison: 2022 The lungs appear clear of acute infiltrate. No significant pleural effusion noted. The heart is normal size. IMPRESSION: No acute abnormality is displayed.
[2024-04-24 19:28] LABS: Anion Gap 9.6 mEq/L (5.0-15.0); Magnesium 2.3 mg/dL (1.6-2.4); Potassium 3.6 mEq/L (3.5-5.1)
[2024-04-24] MEDS ORDERED: FUROSEMIDE 20 MG/ 2ML VIAL ONE (19:42)
--- NOTE | 2024-04-24 19:44 | RAD REPORT ---
Extrem Venous W Compress Abdon History: Leg swelling Comparison: None. Technique sonography of the bilateral lower extremity veins was performed. The examination included compression for vein patency, color Doppler imaging and flow augmentation in response to distal compression of the distal external iliac, common femoral, femoral, popliteal, tibial, and great l saphenous veins. rayscale, color and spectral analysis performed on all vessels FINDINGS: Duplex sonography testing of the veins of the bilateral lower extremity was performed. Color flow imaging shows all veins to be compressible with [id number] color filling. Pulsatile and phasic flow is present within all lower extremity deep and superficial veins examined. IMPRESSION: No evidence of deep venous thrombosis.
[2024-04-24] MEDS ORDERED: CLINDAMYCIN 900MG/D5W 900 MG/50 ML IVPB IV ONE (20:55)
--- NOTE | 2024-04-24 21:24 | EDPHYS ---
Physician Documentation [facility] Name: Dalton Sevilla Age: 23 yrs Sex: Male : 2000 Arrival Date: 04/24/2024 Time: 17:11 Bed 7 Private MD: ED Physician Marvin Haney HPI: 04/24 18:05 This 23 yrs old Male presents to ER via Ambulatory with complaints of Leg Swelling, Leg cp Pain, Rash - on legs. 18:05 The patient presents with pain, that is acute, swelling, rash. The complaints affect cp the right lower leg and left lower leg. Context: resulted from an unknown cause. Onset: The symptoms/episode began/occurred 2 day(s) ago. 18:05 Associated signs and symptoms: Pertinent positives: swelling, warmth, drainage, cp redness, Pertinent negatives fever. 18:05 Treatment prior to arrival includes: no previous treatment. Patient reports work cp requires exposure to different chemicals and concerned about exposure causing rash. Historical: - Allergies: 18:00 NKDA; tm6 - PMHx: 18:00 None; tm6 - PSHx: 18:00 None; tm6 - Immunization history:: Client reports having NOT received the Covid vaccine. - Infectious Disease History:: Denies. - Social history:: Smoking status: Patient denies any tobacco usage or history of. Patient/guardian denies using alcohol. ROS: 18:10 Skin: Positive for rash, of the left lower leg and right lower leg, cp 18:10 Eyes: Negative for injury, pain, redness, and discharge, cp 18:10 Constitutional: Negative for body aches, fever, 18:10 Cardiovascular: Negative for chest pain, palpitations, 18:10 Respiratory: Negative for cough, shortness of breath, wheezing, 18:10 Abdomen/GI: Negative for abdominal pain, vomiting, diarrhea, constipation, 18:10 Neuro: Negative for altered mental status, headache, weakness, 18:10 All other systems are negative, Exam: 18:15 Constitutional: The patient appears in no acute distress, alert, awake, cp non-diaphoretic, non-toxic, well developed, well nourished, obese, 18:15 Head/Face: Normocephalic, atraumatic. cp 18:15 Eyes: Periorbital structures: appear normal, Conjunctiva: normal, no exudate, no injection, Sclera: no appreciated abnormality, Lids and lashes: appear normal, bilaterally, 18:15 ENT: External ear(s): are unremarkable, Nose: is normal, Mouth: Lips: moist, Oral mucosa: pink and intact, moist, Posterior pharynx: is normal, airway is patent, no erythema, no exudate, 18:15 Chest/axilla: Inspection: normal, 18:15 Cardiovascular: Rate: tachycardic, Rhythm: regular, 18:15 Respiratory: the patient does not display signs of respiratory distress, Respirations: normal, no use of accessory muscles, no retractions, labored breathing, is not present, Breath sounds: are clear throughout, no decreased breath sounds, no stridor, no wheezing, 18:15 Musculoskeletal/extremity: Extremities: noted in the right lower leg and left lower leg: Isolated rash that appears with erythematous papules scattered throughout both lower legs, mild to moderate swelling of lower legs, erythema and skin is warm to touch and there is serosanguineous drainage with honey colored exudates, 18:15 Neuro: Orientation: to person, place \T\ time. Mentation: is normal, Gait: is steady, 19:05 ECG was reviewed by the Attending Physician. cp Vital Signs: 18:00 BP 128 / 82; Pulse 116; Resp 20; Temp 99.2(O); Pulse Ox 97% on R/A; Weight 185.07 kg; tm6 Height 5 ft. 11 in. ; Pain 3/10; 18:03 Pain 3/10; tm6 19:20 BP 134 / 86; Pulse 107; Resp 17 S; Pulse Ox 100% on R/A; ha1 20:00 BP 114 / 66; Pulse 112; Resp 16 S; Pulse Ox 98% on R/A; ha1 20:56 BP 144 / 97; Pulse 105; Resp 16 S; Pulse Ox 98% on R/A; ha1 21:53 BP 138 / 88; Pulse 102; Resp 16; Pulse Ox 99% on R/A; al5 18:00 Body Mass Index 56.90 (185.07 kg, 180.34 cm) tm6 18:00 Pain Scale: Adult tm6 18:03 Pain Scale: Adult tm6 MDM: 18:04 Patient medically screened. cp 21:23 Data reviewed: vital signs, nurses notes, lab test result(s), EKG, radiologic studies, cp ultrasound, and as a result, I will discharge patient. 21:23 Differential diagnosis: cellulitis, sepsis, DVT. I considered the following discharge cp prescriptions or medication management in the emergency department Medications were administered in the Emergency Department. See MAR. Counseling: I had a detailed discussion with the patient and/or guardian regarding the historical points, exam findings, and any diagnostic results supporting the discharge/admit diagnosis, lab results, radiology results, the need for outpatient follow up, a family practitioner, to return to the emergency department if symptoms worsen or persist or if there are any questions or concerns that arise at home. 04/24 18:02 Order name: Basic Metabolic Panel; Complete Time: 20:33 cp 04/24 18:02 Order name: CBC with Diff; Complete Time: 19:25 cp 04/24 19:25 Interpretation: Normal except: WBC 12.10; HGB 13.0; MCV 79.5; MCH 26.1; MPV 7.0; NEUT A cp 8.7. 04/24 18:02 Order name: Magnesium; Complete Time: 20:33 cp 04/24 18:02 Order name: NT PRO-BNP; Complete Time: 20:33 cp 04/24 18:02 Order name: PT-INR; Complete Time: 19:25 cp 04/24 18:02 Order name: Troponin HS; Complete Time: 20:33 cp 18 18:02 Order name: XRAY Chest (1 view); Complete Time: 19:25 cp 04/24 18:02 Order name: US Extremity Venous W Compression Abdon; Complete Time: 20:33 cp 04/24 18:02 Order name: EKG; Complete Time: 18:02 cp 04/24 18:02 Order name: Cardiac monitoring; Complete Time: 19:16 cp 04/24 18:02 Order name: EKG - Nurse/Tech; Complete Time: 19:03 cp 04/24 18:02 Order name: IV Saline Lock; Complete Time: 19:03 cp 04/24 18:02 Order name: Labs collected and sent; Complete Time: 19:03 cp 18 18:02 Order name: O2 Per Protocol; Complete Time: 19:16 cp 04/24 18:02 Order name: O2 Sat Monitoring; Complete Time: 19:16 cp 09/18 20:42 Order name: Wound dressing: bacitracin; Complete Time: 21:50 cp EC:05 Rate is 108 beats/min. Rhythm is regular. RI interval is normal. QRS interval is cp normal. QT interval is normal. T waves are Inverted in leads III, aVR. Interpreted by me. Reviewed by me. Administered Medications: 19:50 Drug: Furosemide IVP 20 mg IVP once; give over 2 minutes Route: IVP; Site: left forearm;al5 20:42 Follow up: Response: No adverse reaction al5 21:03 Drug: Clindamycin IVPB 900 mg IVPB once over 30 mins; (mix in 50 mL) Route: IVPB; al5 Infused Over: 30 mins; Site: left forearm; 21:50 Follow up: Response: No adverse reaction; IV Status: Completed infusion; IV Intake: [id number] Disposition Summary: 04/24/24 21:24 Discharge Ordered Notes: Location: Home cp Problem: new cp Symptoms: have improved cp Condition: Stable cp Diagnosis - Cellulitis of left lower limb cp - Cellulitis of right lower limb cp Followup: cp - With: Private Physician - When: 2 - 3 days - Reason: Recheck today's complaints Discharge Instructions: - Discharge Summary Sheet cp - Cellulitis, Adult cp Forms: - Medication Reconciliation Form cp - Antibiotic Education cp - Prescription Opioid Use cp - Patient Portal Instructions cp - Leadership Thank You Letter cp - Work release form al5 Prescriptions: - mupirocin calcium 2 % Topical cream - apply 1 application TOPICAL route 2-3 times daily; 60 gram tube; Refills: 0, cp Product Selection Permitted - Clindamycin HCl 300 mg Oral Capsule - take 1 capsule ORAL route every 6 hours for 10 days; 40 capsule; Refills: 0, cp Product Selection Permitted - Bactrim DS 800-160 mg Oral Tablet - take 1 tablet ORAL route every 12 hours for 10 days; 20 tablet; Refills: 0, cp Product Selection Permitted Signatures: Dispatcher [employer] EDMS Marvin Hearn PA PA cp Masterson, Tawney RN RN tm6 Ricarda Luz RN RN al5 Corrections: (The following items were deleted from the chart) 18:02 18:02 BASIC METABOLIC PANEL+C.LAB.BRZ ordered. EDMS EDMS 18:02 18:02 CBC+H.LAB.BRZ ordered. EDMS EDMS 18:02 18:02 MAGNESIUM+C.LAB.BRZ ordered. EDMS EDMS 18:02 18:02 PROBNP+C.LAB.BRZ ordered. EDMS EDMS 18:02 18:02 PROTIME (+INR)+COAG.LAB.BRZ ordered. EDMS EDMS 18:02 18:02 Troponin High Sensitivity+C.LAB.BRZ ordered. EDMS EDMS 04/25 00:26 04/24 18:05 Onset: The symptoms/episode began/occurred 2 week(s) ago, cp cp 04/25 21:07 21:06 Skin: Positive for rash, of the left lower leg and right lower leg, cp cp
--- NOTE | 2024-04-24 21:24 | ER ---
Nurse's Notes [facility] – [place], [place] Name: Dalton Sevilla Age: 23 yrs Sex: Male : 2000 Arrival Date: 04/24/2024 Time: 17:11 Bed 7 Private MD: Diagnosis: Cellulitis of left lower limb;Cellulitis of right lower limb Presentation: 04/24 17:58 Chief complaint: Patient states: rash on both legs starting two days ago. Itches. Ebola tm6 Screen: Patient negative for fever greater than or equal to 101.5 degrees Fahrenheit, and additional compatible Ebola Virus Disease symptoms Patient denies exposure to infectious person. Patient denies travel to an Ebola-affected area in the 21 days before illness onset. No symptoms or risks identified at this time. Initial Sepsis Screen: Does the patient meet any 2 criteria? HR > 90 bpm. No. Patient's initial sepsis screen is negative. Does the patient have a suspected source of infection? No. Patient's initial sepsis screen is negative. Risk Assessment: Do you want to hurt yourself or someone else? Patient reports no desire to harm self or others. Onset of symptoms was April 22, 2024. 17:58 Method Of Arrival: Ambulatory tm6 17:58 Acuity: NNEKA 3 tm6 18:03 Coronavirus screen: Vaccine status: Patient reports being unvaccinated. tm6 Triage Assessment: 17:59 General: Appears in no apparent distress. Behavior is calm, cooperative. Pain: tm6 Complains of pain in right leg and left leg Pain currently is 5 out of 10 on a pain scale. Quality of pain is described as stinging, Pain began 2-3 days ago. EENT: No signs and/or symptoms were reported regarding the EENT system. Neuro: Level of Consciousness is awake, alert, obeys commands, Oriented to person, place, time, situation, Cardiovascular: Patient's skin is warm and dry. Respiratory: Airway is patent Respiratory effort is even, unlabored, Respiratory pattern is regular, symmetrical. GI: No signs and/or symptoms were reported involving the gastrointestinal system. Abdomen is round. : No signs and/or symptoms were reported regarding the genitourinary system. Derm: Rash noted that is itchy, on right leg and left leg Reports itching, since two days ago. Musculoskeletal: No signs and/or symptoms reported regarding the musculoskeletal system. Historical: - Allergies: 18:00 NKDA; tm6 - PMHx: 18:00 None; tm6 - PSHx: 18:00 None; tm6 - Immunization history:: Client reports having NOT received the Covid vaccine. - Infectious Disease History:: Denies. - Social history:: Smoking status: Patient denies any tobacco usage or history of. Patient/guardian denies using alcohol. Screenin:16 [facility] ED Fall Risk Assessment (Adult) History of falling in the last 3 months, al5 including since admission No falls in past 3 months (0 pts) Confusion or Disorientation No (0 pts) Intoxicated or Sedated No (0 pts) Impaired Gait No (0 pts) Mobility Assist Device Used No (0 pt) Altered Elimination No (0 pt) Score/Fall Risk Level 0 - 2 = Low Risk Oriented to surroundings, Maintained a safe environment, Hourly rounding (assess needs \T\ fall precautionary measures) done. Abuse screen: Denies threats or abuse. Denies injuries from another. Nutritional screening: No deficits noted. Tuberculosis screening: No symptoms or risk factors identified. Assessment: 19:17 General: Appears in no apparent distress. Behavior is calm, cooperative. Pain: al5 Complains of pain in left leg and right leg Pain currently is 3 out of 10 on a pain scale. Neuro: Level of Consciousness is awake, alert, obeys commands, Oriented to person, place, time, situation. Cardiovascular: Capillary refill < 3 seconds Patient's skin is warm and dry. Cardiovascular: Rhythm is sinus tachycardia 110. Respiratory: Airway is patent Respiratory effort is even, unlabored, Respiratory pattern is regular, symmetrical. GI: No signs and/or symptoms were reported involving the gastrointestinal system. : No signs and/or symptoms were reported regarding the genitourinary system. EENT: No signs and/or symptoms were reported regarding the EENT system. Derm: Reports pain similar to a sunburn that has been re-exposed to the sun x3 days, progressively getting worse yesterday. Derm: Skin is intact, Rash noted that is red. Musculoskeletal: No signs and/or symptoms reported regarding the musculoskeletal system. 20:36 Reassessment: Patient appears in no apparent distress at this time. No changes from al5 previously documented assessment. Patient and/or family updated on plan of care and expected duration. Pain level reassessed. Patient is alert, oriented x 3, equal unlabored respirations, skin warm/dry/pink. 21:53 Reassessment: Patient appears in no apparent distress at this time. No changes from al5 previously documented assessment. Patient and/or family updated on plan of care and expected duration. Pain level reassessed. Patient is alert, oriented x 3, equal unlabored respirations, skin warm/dry/pink. Vital Signs: 18:00 BP 128 / 82; Pulse 116; Resp 20; Temp 99.2(O); Pulse Ox 97% on R/A; Weight 185.07 kg; tm6 Height 5 ft. 11 in. ; Pain 3/10; 18:03 Pain 3/10; tm6 19:20 BP 134 / 86; Pulse 107; Resp 17 S; Pulse Ox 100% on R/A; ha1 20:00 BP 114 / 66; Pulse 112; Resp 16 S; Pulse Ox 98% on R/A; ha1 20:56 BP 144 / 97; Pulse 105; Resp 16 S; Pulse Ox 98% on R/A; ha1 21:53 BP 138 / 88; Pulse 102; Resp 16; Pulse Ox 99% on R/A; al5 18:00 Body Mass Index 56.90 (185.07 kg, 180.34 cm) tm6 18:00 Pain Scale: Adult tm6 18:03 Pain Scale: Adult tm6 ED Course: 17:14 Patient arrived in ED. im 17:56 Marvin Hearn PA is PHCP. cp 17:56 Marvin Haney MD is Attending Physician. cp 17:58 Arm band placed on left wrist. tm6 17:59 Triage completed. tm6 18:45 Missed attempt(s): 20 gauge in right antecubital area. bc6 18:58 XRAY Chest (1 view) In Process Unspecified. EDMS 19:03 Basic Metabolic Panel Sent. bc6 19:03 CBC with Diff Sent. bc6 19:03 Magnesium Sent. bc6 19:03 NT PRO-BNP Sent. bc6 19:03 PT-INR Sent. bc6 19:03 Troponin HS Sent. bc6 19:04 Initial lab(s) drawn, by ga, sent to lab. Inserted saline lock: 22 gauge in left bc6 forearm, using aseptic technique. Blood collected. Flushed with 10 mL NS. 19:11 Langhorst, Ricarda, RN is Primary Nurse. al5 19:16 Patient has correct armband on for positive identification. Bed in low position. Call al5 light in reach. Side rails up X 1. Provided Education on: processes and procedures. 19:16 No provider procedures requiring assistance completed. al5 19:24 US Extremity Venous W Compression [place] In Process Unspecified. EDMS 21:51 Wound care: to cellulitis located on right leg and left leg was cleaned with soap and al5 water, soaked in saline soaked gauze dressed with 4X4s, Kerlix, bacitracin, Patient tolerated well. 21:54 IV discontinued, intact, bleeding controlled, No redness/swelling at site. Pressure al5 dressing applied. Administered Medications: 19:50 Drug: Furosemide IVP 20 mg IVP once; give over 2 minutes Route: IVP; Site: left forearm;al5 20:42 Follow up: Response: No adverse reaction al5 21:03 Drug: Clindamycin IVPB 900 mg IVPB once over 30 mins; (mix in 50 mL) Route: IVPB; al5 Infused Over: 30 mins; Site: left forearm; 21:50 Follow up: Response: No adverse reaction; IV Status: Completed infusion; IV Intake: [id number] Medication: 19:16 VIS not applicable for this client. al5 Intake: 21:50 IV: 50ml; Total: 50ml. al5 Outcome: 21:24 Discharge ordered by MD. cp 21:54 Discharged to home ambulatory, with significant other, al5 21:54 Condition: good 21:54 Discharge instructions given to patient, significant other, Instructed on discharge instructions, follow up and referral plans. medication usage, Demonstrated understanding of instructions, follow-up care, medications, Prescriptions given X 3, 21:54 Patient left the ED. al5 Signatures: Dispatcher [employer] EDMT Marvin Hearn PA PA cp Ayala, Heidy RN RN ha1 Eve Wellington Ling Stout Tawney RN RN tm6 Ricarda Luz, RN RN al5 Corrections: (The following items were deleted from the chart) 18:03 17:58 Initial Sepsis Screen: Does the patient meet any 2 criteria? No. Patient's tm6 initial sepsis screen is negative. Does the patient have a suspected source of infection? No. Patient's initial sepsis screen is negative. tm6
[2024-04-24 22:14] VITALS: TEMP 99.2
[2024-04-24 22:29] VITALS: BP 138/88; O2SAT 99
--- NOTE | 2024-04-25 12:16 | EKG ---
Test Date: 2024-04-24 Test Time: 18:59:48 Chief Executive Officer: [employer] MEASUREMENT RESULTS: Intervals: Rate: 108 HI: 128 QRSD: 76 QT: 326 QTc: 436 [place]: P: 9 HI: 128 QRS: 66 T: 12 INTERPRETIVE STATEMENTS: Sinus tachycardia Otherwise normal ECG Compared to ECG 06/23/2023 15:05:34 No significant changes Electronically Signed On 04-25-24 12:14:57 CDT by Boo Shane
== END 2024-04-24 21:54 | disposition home or self-care (01) ==
LOC: ER 17:11
DX: L03.116 Cellulitis of left lower limb (principal); L03.115 Cellulitis of right lower limb
CPT/HCPCS: 96365; 93005; 85025; 80048; 36415; 83735; 85610; 84484; 83880; 71045; 93970; 96375; 99284; J1940